=== PATIENT | male | born 1940 | race Caucasian/White ===

== ENCOUNTER → 2016-09-15 | Outpatient (CLI) | payer MEDICARE ==
[~2016-09-15] MED LIST: /PRAV20TA PO; ALLO10TA PO; ANTI12.5 OR; ASPI1TAB PO; ASPI81TA45 OR; ATOR1TAB21 PO; B12-1CHW PO; BUSP10TA PO; DIOVAN/HCT PO; DONE10TA15 PO; ELIQ5TAB PO; GLIP-163 PO; KEPP500T6 PO; METF500T PO; METO25TAB PO; NAPR500T2 PO; NORV5TAB PO; OMEP20CA3 PO; OMEP20TA7 PO; OMEP40CA2 PO; PARO20TA2 PO; PREDPOW10; TYLE325T5 PO; TYLENOL; VITA100072 PO; VITA200038 PO; ZYLO300T4 PO
--- NOTE | 2016-09-15 14:12 | REP ---
PARTIAL SKULL, ONE VIEW: HISTORY: Hydrocephalus. COMPARISON: 08/27/2016. A SALES REPRESENTATIVE DOOR TO DOOR shunt is present. The shunt valve has moved compared to the previous study. IMPRESSION: The shunt valve has moved compared to the previous study. Signed by Pravin Morales MD 09/15/2016 02:26 P
== END ==
LOC: M RAD 13:04
PROVIDERS: ATTEND Neurological Surgery
DX: F03.91 Unspecified dementia, unspecified severity, with behavioral disturbance (principal)

== ENCOUNTER → 2016-09-16 | Outpatient (CLI) | payer MEDICARE ==
--- NOTE | 2016-09-16 14:03 | REP ---
AP AND LATERAL SKULL, TWO VIEWS: HISTORY: Normal pressure hydrocephalus. COMPARISON: 09/15/2016 A shunt is present in the region of the third ventricle. The shunt valve position appears changed compared to the previous study. IMPRESSION: A PIPE FITTER SOFT COPPER shunt is present. The position of the shunt valve is changed compared to the previous study. Signed by Pravin Morales MD 09/16/2016 02:10 P
== END ==
LOC: M RAD 12:39
PROVIDERS: ATTEND Neurological Surgery
DX: G91.2 (Idiopathic) normal pressure hydrocephalus (principal); Z98.2 Presence of cerebrospinal fluid drainage device

== ENCOUNTER 2016-09-28 11:57 | Inpatient (IN) | payer MEDICARE, MEDICAID ==
[2016-09-28 13:09] LABS: BASO % 0.3 % (0.0-1.0); EOS # 0.1 K/mm3 (0.0-0.50); EOS % 0.9 % (0.0-3.0); LARGE UNSTAINED CELL # 0.1 K/mm3 (0.0-0.4); LARGE UNSTAINED CELL % 1.5 % (0.0-4.0); LYMPH # 1.4 K/mm3 (1.5-4.5); LYMPH % 16.1 % (24.0-44.0); MEAN CORPUSCULAR HEMOGLOBIN 33.7 pg (27.0-33.0); MEAN CORPUSCULAR VOLUME 102.2 fl (80.0-96.0); MONO # 0.3 K/mm3 (0.0-0.8); NEUTROPHILS # 6.7 K/mm3 (1.8-7.7); NEUTROPHILS % 77.2 % (36.0-66.0); PLATELET COUNT, AUTOMATED 301 k/mm3 (150-450); RED CELL DISTRIBUTION WIDTH 13.2 % (11.5-14.5); WHITE BLOOD COUNT 8.6 K/mm3 (4.0-10.0)
[2016-09-28 13:20] LABS: ALBUMIN 3.7 GM/DL (3.2-5.2); ALBUMIN/GLOBULIN RATIO 0.95 (1.00-1.93); BILIRUBIN,DIRECT 0.2 MG/DL (0.0-0.2); BILIRUBIN,TOTAL 0.7 MG/DL (0.2-1.0); CALCIUM LEVEL 8.9 MG/DL (8.8-10.2); CREATININE FOR GFR 1.39 MG/DL (0.70-1.30); GLOMERULAR FILTRATION RATE 52.6 (>42); POTASSIUM SERUM 3.9 MEQ/L (3.5-5.1); TOTAL PROTEIN 7.6 GM/DL (6.4-8.2)
--- NOTE | 2016-09-28 13:27 | REP ---
CT brain without contrast: 09/28/2016. Comparison 08/27/2016, 07/22/2015. Clinical history: Altered mental status. Evaluate for intracranial hemorrhage. Has a ventriculostomy catheter. Findings: Soft tissue and bone windows are reviewed. Via a right frontal approach, ventriculostomy drain is seen entering the frontal horn right lateral ventricle crossing the midline terminating in the right lateral ventricle. Maximum diameter between margins of the right and left frontal horns is now 59 mm. It was 54 mm on 08/27/2016 at the same level and 56 mm in June 2015. This is slight increase in size of the lateral ventricles. The third ventricle has a transverse diameter of 11.7 mm currently, previously 11.6 mm, unchanged. Fourth ventricle also appears unchanged. There appears to be more distension of the temporal horns of both lateral ventricles compared to the previous studies. Diffuse atrophy is seen, greatest in the temporal and frontal lobes but present throughout and grossly unchanged. No intracranial hemorrhage. Heavy falcine seen calcifications anteriorly noted and some calcifications on the tentorium as well unchanged. Brainstem intact. There is atrophy of the cerebellum bilaterally. No vascular territory infarct, hemorrhage or mass. No extra-axial hemorrhage or fluid collection. Ethmoid sinuses show mucosal thickening with the frontal and sphenoid sinuses clear. Mastoids are also clear. Skull base and calvarium are without fracture or focal lesion. Impression: 1. Right frontal ventriculostomy drain catheter crossing the midline with its tip terminating in the region of the foramen of Monro on the left. This ventriculomegaly appearance is unchanged, except that the diameter of the bilateral frontal horns combined is 59 mm, previously 54 mm on 08/27/2016. The third ventricle has unchanged diameter of 11.7 mm and the bilateral temporal horns of the lateral ventricles are mildly larger compared to the previous studies as well. No intra or extra-axial hemorrhage, mass or mass effect. Moderately severe atrophy unchanged. Signed by Bradley Schafer MD 09/28/2016 05:59 P
--- NOTE | 2016-09-28 13:38 | REP ---
SHUNT SERIES: 09/28/2016. Clinical history: Altered mental status. Known ventriculoperitoneal drain. Comparison: 03/17/2015. Findings: The right-sided ventriculostomy catheter is seen crossing the midline on the frontal skull view, unchanged. The catheter extends over the chest wall from the right neck into the right upper abdomen extending down to the deep pelvis curving laterally along the perineal gutter up into the lateral aspect of the mid upper right abdomen. The line is intact throughout. There is cardiomegaly with left atrial and ventricular enlargement and a tortuous calcified aorta. There are degenerative changes in the spine and hips. Surgical clips overlying the deep pelvis in the prostate bed. Vascular calcifications are noted in the pelvic and femoral arteries. Impression: 1. Ventriculostomy drain via the right frontoparietal region across the midline with its tip on the left and with the catheter course through the calvarium, scalp, right neck, right chest and into the abdomen/pelvis described and intact. Signed by Bradley Schafer MD 09/28/2016 05:59 P
[2016-09-28] MEDS ORDERED: TRAZ50TA4 PO (14:42)
[2016-09-28] MEDS ORDERED: ACET50TAOT PO (14:42)
[2016-09-28] MEDS ORDERED: METO25TAB PO (14:42)
[2016-09-28] MEDS ORDERED: HYDR1CAP25 PO (14:42)
[2016-09-28] MEDS ORDERED: COLA100C PO (14:44)
[2016-09-28] MEDS ORDERED: hydrOXYzine 25 MG TAB As Ordered ONE (15:36)
--- NOTE | 2016-09-28 19:31 | HPEPDOC ---
General Date of Admission Chief Complaint The patient is a 76-year-old male Presented to the ER by his family because he was found to have increased aggression and confusion in the last few week. 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 Patients has noted that after the shunt placement for the NPH he has had improvement; however there has been a slow and gradual decline in his mental status since that point. Recently in the last few weeks he is unable to recognize people, is lost within his own home, unable to perform activities of daily living and has become abusive and combative. Patient had a readjustment of his DRIER FEEDER shunt on September 06 and they noted there has not been much improvement. The patients notes, there have been no fevers or chills. Home Medications Scheduled Allopurinol (Zyloprim) 300 Mg Tab 300 MG PO DAILY (Reported) Amlodipine Besylate (Norvasc) 5 Mg Tab 5 MG PO DAILY (Reported) Apixaban Base (Eliquis) 5 Mg Tab 5 MG PO BID (Reported) Atorvastatin Calcium (Atorvastatin Calcium) 20 Mg Tab 20 MG PO DAILY (Reported ) Cholecalciferol (Vitamin D-3) 2,000 Unit Tab 2,000 UNIT PO DAILY (Reported) Cyanocobalamin (Vitamin B12) 1,000 Mcg Tab 1,000 MCG PO DAILY (Reported) Hydroxyzine Pamoate (Hydroxyzine Pamoate) 25 Mg Cap 25 MG PO BID (Reported) Metoprolol Tartrate (Metoprolol Tartrate) 25 Mg Tab 25 MG PO BID (Reported) Omeprazole (Omeprazole) 20 Mg Cap 20 MG PO DAILY (Reported) Paroxetine (Paroxetine HCl) 20 Mg Tab 20 MG PO DAILY (Reported) Trazodone HCl (Trazodone HCl) 50 Mg Tab 50 MG PO QHS (Reported) Scheduled PRN Acetaminophen (Acetaminophen) 500 Mg Tab 1,000 MG PO Q8H PRN PRN PAIN (Reported ) Docusate Sodium (Colace) 100 Mg Cap 100 MG PO BID PRN PRN CONSTIPATION (Reported ) Allergies Coded Allergies: Penicillins (Verified Allergy, Intermediate, HIVES, 11/28/12) Penicillins Cross Reactors (Verified Allergy, Intermediate, HIVES, 11/28/12) Past Medical History Medical History NPH s/p shunt (12/2013), Dementia, 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), Prostate CA (2000, s/p surgery and radiation), HTN, Neuropathy, Atrial fibrillation (on Eliquis) and arthritis Surgical History Prostate surgery NPH shunt placement Family History Family History Non contributory Social History Social History - Denies the use of tobacco or illicit drugs; Extensive alcohol abuse history in past - Denies recent travel or sick contacts - Lives with - 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; 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 Review of Symptoms Other systems Unable to obtain Vital Signs - Vitals: BP 162/78, HR 51, RR 16, Sat 99%RA, Temp 96.1F - General: Lying in bed, No acute distress, AAOx1 (person only - HEENT: NC, AT, PERRLA, EOMI - CVS: Bradycardia, +S1S2, - Lungs: Fair air entry bilaterally, Clear to auscultation, No wheezing / rales / rhonchi - Abdomen: Soft, Non-distended, Non-tender, + Bowel sounds x 4 - Extremities: + PPx4, No lower extremity edema, No calf tenderness - Neuro: No sensory deficit; 4/5 muscle strength at right leg - Skin: No visible rashes Laboratory Data Labs 24H Laboratory Tests 2 09/28/16 12:44: Aspartate Amino Transf (AST/SGOT) 20, Alanine Aminotransferase (ALT/SGPT) 42, Alkaline Phosphatase 61, Total Bilirubin 0.7, Direct Bilirubin 0.2, Albumin 3.7 , Albumin/Globulin Ratio 0.95L, Anion Gap 10, White Blood Count 8.6, Red Blood Count 4.06L, Hemoglobin 13.7L, Hematocrit 41.4L, Mean Corpuscular Volume 102.2H , Mean Corpuscular Hemoglobin 33.7H, Mean Corpuscular Hemoglobin Concent 33.0, Red Cell Distribution Width 13.2, Platelet Count 301, Neutrophils (%) (Auto) 77.2H, Lymphocytes (%) (Auto) 16.1L, Monocytes (%) (Auto) 4.0, Eosinophils (%) ( Auto) 0.9, Basophils (%) (Auto) 0.3, Neutrophils # (Auto) 6.7, Lymphocytes # ( Auto) 1.4L, Monocytes # (Auto) 0.3, Eosinophils # (Auto) 0.1, Basophils # (Auto ) 0.0, Calcium Level 8.9, Creatine Kinase MB 1.6, Creatine Kinase MB Relative Index 2.38, Glomerular Filtration Rate 52.6, Large Unclassified Cells # 0.1, Large Unclassified Cells % 1.5, Thyroid Stimulating Hormone (TSH) 1.750, Total Creatine Kinase 67, Total Protein 7.6, Troponin I 0.02 09/28/16 12:45: Bedside Glucose (Misc Panel) 191H 09/28/16 14:59: Urine Amorphous Sediment , Urine Appearance CLEAR, Urine Color YELLOW, Urine pH 5.0, Urine Specific [place] 1.020, Urine Protein 2+H, Urine Glucose (UA) NEGATIVE, Urine Ketones NEGATIVE, Urine Urobilinogen 0.2, Urine Bilirubin NEGATIVE, Urine Leukocyte Esterase NEGATIVE, Urine Bacteria (Auto) NEGATIVE, Urine Blood NEGATIVE, Urine Calcium Carbonate Cryst(Auto) , Urine Calcium Oxalate Cryst (Auto) , Urine Calcium Phosphate Adeline (Auto) , Urine Cellular Casts , Urine Cystine Crystals , Urine Granular Casts (Auto) , Urine Hyaline Casts (Auto) 0, Urine Leucine Crystals , Urine Mucus (Auto) SMALL, Urine Nitrite NEGATIVE, Urine Oval Fat Bodies (Auto) , Urine RBC (Auto) 2, Urine Renal Epithelial Cells , Urine Sperm (Auto) , Urine Squamous Epithelial Cells 0 , Urine Transitional Epithelial Cells , Urine Trichomonas (Auto) , Urine Triple Phosphate Cryst (Auto) , Urine Tyrosine Crystals , Urine Uric Acid Crystals ( Auto) , Urine WBC (Auto) 1, Urine Waxy Casts (Auto) , Urine Yeast-Like Cells ( Auto) 09/28/16 19:09: CBC/BMP Laboratory Tests 09/28/16 12:44 Red Blood Count 4.06 L, Mean Corpuscular Volume 102.2 H, Mean Corpuscular Hemoglobin 33.7 H, Mean Corpuscular Hemoglobin Concent 33.0, Red Cell Distribution Width 13.2, Neutrophils (%) (Auto) 77.2 H, Lymphocytes (%) (Auto) 16.1 L, Monocytes (%) (Auto) 4.0, Eosinophils (%) (Auto) 0.9, Basophils (%) ( Auto) 0.3, Neutrophils # (Auto) 6.7, Lymphocytes # (Auto) 1.4 L, Monocytes # ( Auto) 0.3, Eosinophils # (Auto) 0.1, Basophils # (Auto) 0.0 Microbiology Microbiology 09/28/16 Blood Culture, Received Pending 09/28/16 Urine Culture, Received Pending Plan / VTE VTE Prophylaxis Ordered?: Yes Plan Plan Acute metabolic encephalopathy possibly 2/2 worsening of underlying dementia or NPH, possibly 2/2 urinary tract infection - Gradual worsening of dementia over multiple weeks - Has had revaluation and adjustment of shunt with Dr. 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
--- NOTE | 2016-09-28 20:06 | EDDOCDS ---
Physician Documentation [facility] Name: Edi Sweeney Age: 76 yrs Sex: Male : 1940 Arrival Date: 09/28/2016 Time: 11:57 Bed 10 Private MD: Venus Amin E Disposition: 09/28/16 14:15 Hospitalization ordered by Jimmie Delong for Inpatient Admission. Preliminary diagnosis is Altered mental status, unspecified. - Bed requested for 4 [place]. - Status is Inpatient Admission. hs1 - Condition is Stable. - Problem is an ongoing problem. - Symptoms are unchanged. Historical: - Allergies: PENICILLINS; - Home Meds: 1. Eliquis 5 mg oral tab 1 tab daily (Last dose: 09/28/2016 07:00) 2. Doc-Q-Lace 100 mg oral cap 1 cap once daily (Last dose: 09/24/2016 07:00) 3. atorvastatin 20 mg oral tab 1 tab once daily (Last dose: 09/27/2016 20:15) 4. metoprolol tartrate 25 mg Oral tab 1 tab once daily (Last dose: 09/28/2016 07:00) 5. trazodone 50 mg Oral tab 0.5 tab (Last dose: 09/27/2016 20:15) 6. allopurinol 300 mg Oral tab 1 tab once daily (Last dose: 09/28/2016 07:00) 7. paroxetine HCl 20 mg Oral tab 1 tab once daily (Last dose: 09/28/2016 07:00) 8. omeprazole 20 mg Oral cpDR 1 cap once daily (Last dose: 09/28/2016 07:00) 9. hydroxyzine HCl 25 mg Oral tab (Last dose: 09/27/2016 20:15) 10. amlodipine 5 mg Oral tab 1 tab once daily (Last dose: 09/28/2016 07:00) 11. Vitamin B-12 1,000 mcg Oral tab daily (Last dose: 09/28/2016 07:00) 12. Vitamin D3 2,000 unit oral cap daily (Last dose: 09/28/2016 07:00) - PMHx: normal pressure hydrocephalus; Dementia; Arthritis; neuropathy of arms and legs; prostate cancer; lumbar fracture; Stroke; - PSHx: prostate surgery; hydrocephalus shunt insertion; Prostatectomy; right sided head shunt placement; - Social history: Smoking status: Patient states was never smoker of tobacco. No barriers to communication noted, The patient speaks fluent Estonian. - Family history: Not pertinent. - : The pt / caregiver states he / she is on anticoagulants: Eliqu Home medication list is obtained from family members. - Exposure Risk Screening:: None identified. Vital Signs: 09/28 11:59 BP 151 / 79; Pulse 57; Resp 18 S; Temp 96.1(O); Pulse Ox 95% on R/A; Weight 83.91 kg / gr2 184.99 lbs (R); Height 5 ft. 10 in. (177.80 cm) (R); Pain 5/10; 13:11 Pulse 50 MON; Pulse Ox 96% ; ja5 13:12 BP 164 / 78 (auto/); ja5 13:41 Pulse 46 MON; ja5 13:42 BP 166 / 76 (auto/); ja5 14:11 Pulse 48 MON; ja5 14:12 BP 162 / 78 (auto/); ja5 14:41 Pulse 50 MON; Pulse Ox 96% ; ja5 14:42 BP 184 / 85 (auto/); ja5 15:11 Pulse 52 MON; Pulse Ox 94% ; ja5 15:12 BP 180 / 86 (auto/); ja5 15:30 Pulse 58 MON; Pulse Ox 88% ; ja5 15:33 BP 189 / 83 (auto/); ja5 18:00 BP 171 / 78; Pulse 65; Resp 18; Temp 98.1(O); Pulse Ox 95% on R/A; ead 19:44 BP 156 / 79; Pulse 66; Resp 18; Temp 99.1(TE); Pulse Ox 94% on R/A; Pain 0/10; mlc 11:59 Body Mass Index 26.54 (83.91 kg, 177.80 cm) gr2 MDM: 12:08 Adoption Worker/Pulse Ox/q 15 min VS ordered. br1 12:08 Accucheck ordered. br1 12:08 IV Saline Lock ordered. br1 12:08 Rhythm Strip to chart ordered. br1 12:09 CBC with Diff Ordered. EDMS 12:09 Cardiac Injury Profile Ordered. EDMS 12:09 Liver Profile Ordered. EDMS 12:09 MED Profile Ordered. EDMS 12:09 Thyroid Stimulating Hormone Ordered. EDMS 12:09 Troponin Ordered. EDMS 12:09 ECG WITH READING ER PHYS+CARDIAG ordered. EDMS 12:25 Shunt Series Ordered. EDMS 12:25 CT Head Without Contrast Ordered. EDMS 12:54 Fingerstick Blood Sugar Ordered. EDMS 13:42 CBC with Diff Reviewed. ke 13:42 Liver Profile Reviewed. ke 13:42 MED Profile Reviewed. ke 13:42 Fingerstick Blood Sugar Reviewed. ke 13:42 Cardiac Injury Profile Reviewed. ke 13:42 Thyroid Stimulating Hormone Reviewed. ke 13:42 Troponin Reviewed. ke 13:42 CT Head Without Contrast Reviewed. ke 13:59 Financial registration complete. lg 13:59 BED REQUEST+ADM ordered. EDMS 14:13 UA Ordered. EDMS 14:13 Urine Culture Ordered. EDMS 14:49 Admission / Observation Status ordered. EDMS 14:49 2 GRAM SODIUM DIET ordered. EDMS 14:50 CARDIAC INJURY PROFILE Ordered. EDMS 14:50 TROPONIN Ordered. EDMS 14:50 URINALYSIS Ordered. EDMS 14:50 URINE CULTURE Ordered. EDMS 14:50 BLOOD CULTURES Ordered. EDMS 14:51 PHYSICAL THERAPY EVAL & TREAT ordered. EDMS 14:52 [place] Payment Agreement was scanned into [employer] and attached to record. lg 15:43 hydrOXYzine 25 mg PO once ordered. jc4 16:27 T-Sheet-- Draft Copy was scanned into [employer] and attached to record. klr 19:31 CARDIAC INJURY PROFILE Ordered. EDMS 19:31 CARDIAC INJURY PROFILE Ordered. EDMS 19:31 TROPONIN Ordered. EDMS 19:31 TROPONIN Ordered. EDMS 19:31 CBC WITH DIFFERENTIAL Ordered. EDMS 19:31 COMPLETE COMPHRENSIVE METABOLI Ordered. EDMS 19:31 MAGNESIUM LEVEL Ordered. EDMS Point of Care Testing: Blood Glucose: 12:46 Blood Glucose: 191 mg/dL; jc4 Ranges: Administered Medications: 15:43 Drug: hydrOXYzine 25 mg [hydroxyzine HCl 25 mg tablet (1 tabs)] Route: PO; jc4 Signatures: Dispatcher [employer] EDMS Antonia Mast, Reg Reg lg Albert Tellez, PICK UP OPERATOR PICK UP OPERATOR Jeff Barrios MD MD br1 Sherry Ghosh RN RN hs1 Deb Valdez RN RN jc4 Mcnamara,Marie,RN RN mlc Edyta Ceron Lisa, RN RN lmg Anderson, Jessica, RN RN ja5 The chart was reviewed and I authenticate all verbal orders and agree with the evaluation and treatment provided.Corrections: (The following items were deleted from the chart) 12:43 12:18 Home Meds: Eliquis 5 mg oral tab 1 tab daily; [facility] ja5 12:43 12:18 Home Meds: Doc-Q-Lace 100 mg oral cap 1 cap once daily; [facility] 12:43 12:18 Home Meds: atorvastatin 20 mg oral tab 1 tab once daily; [facility] 12:43 12:18 Home Meds: metoprolol tartrate 25 mg Oral tab 1 tab once daily; [place] [id number] 12:43 12:18 Home Meds: trazodone 50 mg oral tab 0.5 tab; [facility] :43 12:18 Home Meds: allopurinol 300 mg Oral tab 1 tab once daily; [place] [address] 12:43 12:18 Home Meds: paroxetine HCl 20 mg Oral tab 1 tab once daily; [facility] 12:43 12:18 Home Meds: omeprazole 20 mg Oral cpDR 1 cap once daily; [place] [address] 12:43 12:18 Home Meds: hydroxyzine HCl 25 mg Oral tab; [place] [address] 12:51 12:41 The pt / caregiver states he / she is not on anticoagulants. ja5 jc4 Attachments: 14:52 [facility] Payment Agreement lg 16:27 T-Sheet-- Draft Copy klr [id number]
--- NOTE | 2016-09-28 20:06 | EDDOCDS ---
Nurse's Notes [facility] Name: Edi Sweeney Age: 76 yrs Sex: Male : 1940 Arrival Date: 09/28/2016 Time: 11:57 Bed 10 Private MD: Venus Amin E Diagnosis: Altered mental status, unspecified Presentation: 09/28 12:14 Presenting complaint: states: history of dementia and has been getting more hs1 volatile at night with her and cannot recognize home anymore. Patient at this time is cooperative and is pleasant. Patient per is getting more and more forgetful. Patient evaluated at Dr mAin office today and they were sent here for further evaluation. Adult Sepsis Screening: The patient does not have new or worsening altered mentation. Patient's respiratory rate is less than 22. Systolic blood pressure is greater than 100. Patient has a qSOFA score of 0- Negative Sepsis Screen. Suicide/Homicide risk assessment- the patient denies having any suicidal and/or homicidal ideations and does not present with any other emotional, behavioral or mental health complaints. Status: Patient is not a creative services designer or dependent. Transition of care: patient was received from a primary care office; Dr Amin. 12:14 Acuity: ELIZABETH Level 3 hs1 12:14 Method Of Arrival: Walkin/Carried/Asstd hs1 Historical: - Allergies: PENICILLINS; - Home Meds: 1. Eliquis 5 mg oral tab 1 tab daily (Last dose: 09/28/2016 07:00) 2. Doc-Q-Lace 100 mg oral cap 1 cap once daily (Last dose: 09/24/2016 07:00) 3. atorvastatin 20 mg oral tab 1 tab once daily (Last dose: 09/27/2016 20:15) 4. metoprolol tartrate 25 mg Oral tab 1 tab once daily (Last dose: 09/28/2016 07:00) 5. trazodone 50 mg Oral tab 0.5 tab (Last dose: 09/27/2016 20:15) 6. allopurinol 300 mg Oral tab 1 tab once daily (Last dose: 09/28/2016 07:00) 7. paroxetine HCl 20 mg Oral tab 1 tab once daily (Last dose: 09/28/2016 07:00) 8. omeprazole 20 mg Oral cpDR 1 cap once daily (Last dose: 09/28/2016 07:00) 9. hydroxyzine HCl 25 mg Oral tab (Last dose: 09/27/2016 20:15) 10. amlodipine 5 mg Oral tab 1 tab once daily (Last dose: 09/28/2016 07:00) 11. Vitamin B-12 1,000 mcg Oral tab daily (Last dose: 09/28/2016 07:00) 12. Vitamin D3 2,000 unit oral cap daily (Last dose: 09/28/2016 07:00) - PMHx: normal pressure hydrocephalus; Dementia; Arthritis; neuropathy of arms and legs; prostate cancer; lumbar fracture; Stroke; - PSHx: prostate surgery; hydrocephalus shunt insertion; Prostatectomy; right sided head shunt placement; - Social history: Smoking status: Patient states was never smoker of tobacco. No barriers to communication noted, The patient speaks fluent [place]. - Family history: Not pertinent. - : The pt / caregiver states he / she is on anticoagulants[facility] is obtained from family members. - Exposure Risk Screening:: None identified. Screenin:43 Screening information is obtained from the patient, family members. Fall risk: At risk ja5 due to prior history of falls. Assistance ADL's: Requires assistance with meal preparation, this assistance is provided by family members, bathing, assistance is provided by family members, dressing, assistance is provided by family members, toileting, assistance is provided by family members, housework, assistance is provided by family members, medication administration, assistance is provided by family members. Abuse/DV Screen: The patient / caregiver reports he/she is: not in a situation that causes fear, pain or injury. Nutritional screening: On no prescribed diet. 12:51 Advance Directives: Currently, there is a health care proxy, Kathy Sweeney, . There ja5 is an active DNR order but there is no copy available at this time. There is no living will. There is an active Power of Tailor Garment Fitter, Kathy Sweeney, . home support is adequate. Assessment: 12:53 General: Appears in no apparent distress, Behavior is cooperative. ja5 15:37 General: Patient is awake, is having some confusion and restlessness. He is attempting ja5 to get out of bed at this time. Monitors were removed and patient was repositioned for comfort. Patient is in stretcher, family at bedside.. Neurological: Level of Consciousness is awake, confused, Oriented to person. 15:43 General: at nurse's station states that patient is becoming agitated. Pt found to jc4 be slid down on stretcher. Pt repositioned. Pt is alert to person. No distress noted at this time. Spoke with Dr. Delong who states to go ahead and administer dose of Hydroxyzine now. Pt is reluctant to take pill, states, "give it to her". Pt points to wall while verbalizing this. Pt administered dose of medication, declines to open mouth to check to see if pill is gone, but is willing to take another sip of water and swallows without difficulty. 16:03 General: Pt lying on stretcher. Smiling, cooperative. Color pink, skin warm and dry. jc4 Respirations easy and full. Family at bedside, attentive. Aware awaiting bed assignment. Call schulz in reach. 16:35 General: Pt ambulating in hallway, states, "there he goes again". Pt has slow jc4 steady gait but normally uses walker at home. aware that sitter has been requested for patient. She states, "they better not talk to him or engage him, because it just makes him worse". Pt sitting in bedside chair. TV is turned on and patient has been given Jose Eduardo frias and terrie raven. 17:38 General: Patient sitting up in chair, sitter in room, patient appears to be calm and ja5 relaxed at this time.. 19:33 General: Appears in no apparent distress, comfortable, Behavior is cooperative. mlc General: Family and sitter at bedside. IV site clear. . Pain: Denies pain. Neurological: Level of Consciousness is awake, obeys commands, Oriented to person. Respiratory: Airway is patent Respiratory effort is even, unlabored, Respiratory pattern is regular. Derm: Skin is normal. Vital Signs: 11:59 BP 151 / 79; Pulse 57; Resp 18 S; Temp 96.1(O); Pulse Ox 95% on R/A; Weight 83.91 kg gr2 (R); Height 5 ft. 10 in. (177.80 cm) (R); Pain 5/10; 13:11 Pulse 50 MON; Pulse Ox 96% ; ja5 13:12 BP 164 / 78 (auto/); ja5 13:41 Pulse 46 MON; ja5 13:42 BP 166 / 76 (auto/); ja5 14:11 Pulse 48 MON; ja5 14:12 BP 162 / 78 (auto/); ja5 14:41 Pulse 50 MON; Pulse Ox 96% ; ja5 14:42 BP 184 / 85 (auto/); ja5 15:11 Pulse 52 MON; Pulse Ox 94% ; ja5 15:12 BP 180 / 86 (auto/); ja5 15:30 Pulse 58 MON; Pulse Ox 88% ; ja5 15:33 BP 189 / 83 (auto/); ja5 18:00 BP 171 / 78; Pulse 65; Resp 18; Temp 98.1(O); Pulse Ox 95% on R/A; ead 19:44 BP 156 / 79; Pulse 66; Resp 18; Temp 99.1(TE); Pulse Ox 94% on R/A; Pain 0/10; mlc 11:59 Body Mass Index 26.54 (83.91 kg, 177.80 cm) gr2 Vitals: 11:59 Log In Time: September 28, 2016 at 11:59. RN notified that patient meets Red Flag gr2 criteria. ED Course: 11:58 Patient visited by Camille Cruz. gr2 11:58 Patient moved to Waiting gr2 11:59 Venus Amin is Private Physician. gr2 12:03 Patient visited by Camille Cruz. gr2 12:03 Patient moved to Pre RCE gr2 12:04 Deb Valdez, RN is Primary Nurse. gr2 12:04 Patient moved to 10 gr2 12:14 EKG done. (by ED staff). Reviewed by Jeff Barboza MD. ar3 12:15 Triage Initiated hs1 12:19 Patient visited by Imani Modi PCA. ar3 12:46 Inserted saline lock: 20 gauge in right antecubital area The patient tolerated the jc4 procedure well. 12:46 CBC with Diff Sent. jc4 12:46 Cardiac Injury Profile Sent. jc4 12:46 Liver Profile Sent. jc4 12:47 MED Profile Sent. jc4 12:47 Thyroid Stimulating Hormone Sent. jc4 12:47 Troponin Sent. jc4 13:03 Patient visited by Jessica Yanes PCA. ct3 13:29 CT Head Without Contrast Returned. EDMS 13:30 [facility] ke 13:30 Patient visited by Albert Tellez FNP. ke 13:30 Patient visited by Albert Tellez FNP. ke 13:58 Patient visited by Albert Tellez FNP. ke 14:14 Jimmie Delong MD is Hospitalizing Provider. ke 14:22 Shunt Series Returned. EDMS 14:52 [facility] Payment Agreement was scanned into [employer] and attached to record. lg 15:00 Urine Culture Sent. ct3 15:00 UA Sent. ct3 15:44 Patient visited by Amy Tillman,CESARIO. ja5 16:27 T-Sheet-- Draft Copy was scanned into [employer] and attached to record. klr 17:02 Primary Nurse role handed off by Deb Valdez, CESARIO jc4 17:55 Diet: 2 gram sodium diet given to patient.. ct3 17:56 Patient visited by Jessica Yanes PCA. ct3 18:01 Patient visited by Indigo Luna,CESARIO. ead 18:15 CT Head Without Contrast Returned. EDMS 19:23 Marie Mcnamara,RN is Primary Nurse. mlc 19:34 Patient visited by Marie Mcnamara RN. mlc 19:42 IV is intact, is free of redness or swelling. No procedures done that require mlc assistance. 19:43 The patient / caregiver is instructed regarding the plan of care and ED course. mlc reviewed with family. Administered Medications: 15:43 Drug: hydrOXYzine 25 mg [hydroxyzine HCl 25 mg tablet (1 tabs)] Route: PO; jc4 Point of Care Testing: Blood Glucose: 12:46 Blood Glucose: 191 mg/dL; jc4 Ranges: Order Results: Lab Order: CBC with Diff; SPEC'M 09/28/16 12:44 Test: WHITE BLOOD COUNT; Value: 8.6; Range: 4.0-10.0; Units: K/mm3; Status: F Test: RED BLOOD COUNT; Value: 4.06; Range: 4.30-6.10; Abnormal: Below low normal; Units: M/mm3; Status: F Test: HEMOGLOBIN; Value: 13.7; Range: 14.0-18.0; Abnormal: Below low normal; Units: g/dl; Status: F Test: HEMATOCRIT; Value: 41.4; Range: 42.0-52.0; Abnormal: Below low normal; Units: %; Status: F Test: MEAN CORPUSCULAR VOLUME; Value: 102.2; Range: 80.0-96.0; Abnormal: Above high normal; Units: fl; Status: F Test: MEAN CORPUSCULAR HEMOGLOBIN; Value: 33.7; Range: 27.0-33.0; Abnormal: Above high normal; Units: pg; Status: F Test: MEAN CORPUSCULAR HGB CONC; Value: 33.0; Range: 32.0-36.5; Units: g/dl; Status: F Test: RED CELL DISTRIBUTION WIDTH; Value: 13.2; Range: 11.5-14.5; Units: %; Status: F Test: PLATELET COUNT, AUTOMATED; Value: 301; Range: 150-450; Units: k/mm3; Status: F Test: NEUTROPHILS %; Value: 77.2; Range: 36.0-66.0; Abnormal: Above high normal; Units: %; Status: F Test: LYMPH %; Value: 16.1; Range: 24.0-44.0; Abnormal: Below low normal; Units: %; Status: F Test: MONO %; Value: 4.0; Range: 0.0-5.0; Units: %; Status: F Test: EOS %; Value: 0.9; Range: 0.0-3.0; Units: %; Status: F Test: BASO %; Value: 0.3; Range: 0.0-1.0; Units: %; Status: F Test: LARGE UNSTAINED CELL %; Value: 1.5; Range: 0.0-4.0; Units: %; Status: F Test: NEUTROPHILS #; Value: 6.7; Range: 1.8-7.7; Units: K/mm3; Status: F Test: LYMPH #; Value: 1.4; Range: 1.5-4.5; Abnormal: Below low normal; Units: K/mm3; Status: F Test: MONO #; Value: 0.3; Range: 0.0-0.8; Units: K/mm3; Status: F Test: EOS #; Value: 0.1; Range: 0.0-0.50; Units: K/mm3; Status: F Test: BASO #; Value: 0.0; Range: 0.0-0.2; Units: K/mm3; Status: F Test: LARGE UNSTAINED CELL #; Value: 0.1; Range: 0.0-0.4; Units: K/mm3; Status: F Lab Order: Cardiac Injury Profile; [facility] 09/28/16 12:44 Test: CPK CREATINE PHOSPHOKINASE; Value: 67; Range: 39-308; Units: U/L; Status: F Test: CK-MB VALUE MASS; Value: 1.6; Range: 0.0-3.6; Units: NG/ML; Status: F Test: MB/CK RELATIVE INDEX; Value: 2.38; Range: < OR =4; Status: F Test Note: ; DIAGNOSIS CRITERIA MMB ng/ml Relative Index (RI) NON-AMI < or = 5 N/A FLORIAN ZONE > 5 < or = 4 AMI > 5 > 4 Lab Order: Liver Profile; [facility] 09/28/16 12:44 Test: AST/SGOT; Value: 20; Range: 15-37; Units: U/L; Status: F Test: ALT/SGPT; Value: 42; Range: 12-78; Units: U/L; Status: F Test: ALKALINE PHOSPHATASE; Value: 61; Range: 45-117; Units: U/L; Status: F Test: BILIRUBIN,TOTAL; Value: 0.7; Range: 0.2-1.0; Units: MG/DL; Status: F Test: BILIRUBIN,DIRECT; Value: 0.2; Range: 0.0-0.2; Units: MG/DL; Status: F Test: TOTAL PROTEIN; Value: 7.6; Range: 6.4-8.2; Units: GM/DL; Status: F Test: ALBUMIN; Value: 3.7; Range: 3.2-5.2; Units: GM/DL; Status: F Test: ALBUMIN/GLOBULIN RATIO; Value: 0.95; Range: 1.00-1.93; Abnormal: Below low normal; Status: F Lab Order: MED Profile; [facility] 09/28/16 12:44 Test: GLUCOSE, FASTING; Value: 182; Range: 83-110; Abnormal: Above high normal; Units: MG/DL; Status: F Test: BLOOD UREA NITROGEN; Value: 20; Range: 7-18; Abnormal: Above high normal; Units: MG/DL; Status: F Test: CREATININE FOR GFR; Value: 1.39; Range: 0.70-1.30; Abnormal: Above high normal; Units: MG/DL; Status: F Test: GLOMERULAR FILTRATION RATE; Value: 52.6; Range: >42; Status: F Test: SODIUM LEVEL; Value: 142; Range: 136-145; Units: MEQ/L; Status: F Test: POTASSIUM SERUM; Value: 3.9; Range: 3.5-5.1; Units: MEQ/L; Status: F Test: CHLORIDE LEVEL; Value: 105; Range: 98-107; Units: MEQ/L; Status: F Test: CARBON DIOXIDE LEVEL; Value: 27; Range: 21-32; Units: MEQ/L; Status: F Test: ANION GAP; Value: 10; Range: 8-16; Units: MEQ/L; Status: F Test: CALCIUM LEVEL; Value: 8.9; Range: 8.8-10.2; Units: MG/DL; Status: F Test Note: ; Units are mL/min/1.73 m2 Chronic Kidney Disease Staging per NKF: Stage I & II GFR >=60 Normal to Mildly Decreased Stage III GFR 30-59 Moderately Decreased Stage IV GFR 15-29 Severely Decreased Stage V GFR <15 Very Little GFR Left ESRD GFR <15 on LIFT TRUCK OPERATOR Lab Order: Thyroid Stimulating Hormone; SPEC'M 09/28/16 12:44 Test: THYROID STIMULATING HORMONE; Value: 1.750; Range: 0.358-3.740; Units: uIU/ML; Status: F Lab Order: Troponin; SPEC'M 09/28/16 12:44 Test: TROPONIN I; Value: 0.02; Range: < 0.10; Units: NG/ML; Status: F Test Note: ; Troponin I Reference Interval for [employer] LOCI: 99th Percentile= 0.00-0.045 ng/ml Risk Stratification: <= 0.10 ng/ml Decreased Risk for Adverse Clinical Events. 0.10-1.50 ng/ml Increased Risk for Adverse Clinical Events. Evaluation of additional criterion and/or repeat testing in 2-6 hours is suggested to rule out myocardial damage. >= 1.50 ng/ml Indicative of Myocardial Injury. Lab Order: Fingerstick Blood Sugar; SPEC'M 09/28/16 12:45 Test: BEDSIDE GLUCOSE; Value: 191; Range: 83-110; Abnormal: Above high normal; Units: MG/DL; Status: F Lab Order: UA; SPEC'M 09/28/16 14:59 Test: APPEARANCE, URINE; Value: CLEAR; Range: CLEAR; Status: F Test: COLOR, URINE; Value: YELLOW; Range: YELLOW; Status: F Test: PH,URINE; Value: 5.0; Range: 5.0-9.0; Units: UNITS; Status: F Test: SPECIFIC GRAVITY URINE AUTO; Value: 1.020; Range: 1.002-1.035; Status: F Test: PROTEIN, URINE AUTO; Value: 2+; Range: NEGATIVE; Abnormal: Above high normal; Units: mg/dL; Status: F Test: GLUCOSE, URINE (UA) AUTO; Value: NEGATIVE; Range: NEGATIVE; Units: mg/dL; Status: F Test: KETONE, URINE AUTO; Value: NEGATIVE; Range: NEGATIVE; Units: mg/dL; Status: F Test: UROBILINOGEN, URINE AUTO; Value: 0.2; Range: 0.0-2.0; Units: mg/dL; Status: F Test: BILIRUBIN, URINE AUTO; Value: NEGATIVE; Range: NEGATIVE; Status: F Test: NITRITE, URINE AUTO; Value: NEGATIVE; Range: NEGATIVE; Status: F Test: LEUKOCYTE ESTERASE, URINE AUTO; Value: NEGATIVE; Range: NEGATIVE; Status: F Test: BLOOD, URINE BLOOD; Value: NEGATIVE; Range: NEGATIVE; Status: F Test: WBC, URINE AUTO; Value: 1; Range: 0-3; Units: /HPF; Status: F Test: RBC, URINE AUTO; Value: 2; Range: 0-3; Units: /HPF; Status: F Test: BACTERIA, URINE AUTO; Value: NEGATIVE; Range: NEGATIVE; Status: F Test: SQUAMOUS EPITHELIAL CELL UR AU; Value: 0; Range: 0-6; Units: /HPF; Status: F Test: MUCUS, URINE; Value: SMALL; Range: NEGATIVE; Status: F Test: HYALINE CAST, URINE AUTO; Value: 0; Range: 0-1; Units: /LPF; Status: F Lab Order: CARDIAC INJURY PROFILE; SPEC'M 09/28/16 19:09 Test: CPK CREATINE PHOSPHOKINASE; Value: 77; Range: 39-308; Units: U/L; Status: F Test: CK-MB VALUE MASS; Value: 1.9; Range: 0.0-3.6; Units: NG/ML; Status: F Test: MB/CK RELATIVE INDEX; Value: 2.46; Range: < OR =4; Status: F Test Note: ; DIAGNOSIS CRITERIA MMB ng/ml Relative Index (RI) NON-AMI < or = 5 N/A FLORIAN ZONE > 5 < or = 4 AMI > 5 > 4 Lab Order: TROPONIN; SPEC'M 09/28/16 19:09 Test: TROPONIN I; Value: < 0.02; Range: < 0.10; Units: NG/ML; Status: F Test Note: ; Troponin I Reference Interval for [employer] LOCI: 99th Percentile= 0.00-0.045 ng/ml Risk Stratification: <= 0.10 ng/ml Decreased Risk for Adverse Clinical Events. 0.10-1.50 ng/ml Increased Risk for Adverse Clinical Events. Evaluation of additional criterion and/or repeat testing in 2-6 hours is suggested to rule out myocardial damage. >= 1.50 ng/ml Indicative of Myocardial Injury. Radiology Order: CT Head Without Contrast Test: CT Head Without Contrast REASON FOR EXAMINATION: altered eval for ich; CT brain without contrast: 09/28/2016.; ; Comparison 08/27/2016, 07/22/2015.; ; Clinical history: Altered mental status. Evaluate for intracranial hemorrhage.; Has a ventriculostomy catheter.; ; Findings: Soft tissue and bone windows are reviewed. Via a right frontal; approach, ventriculostomy drain is seen entering the frontal horn right lateral; ventricle crossing the midline terminating in the right lateral ventricle.; Maximum diameter between margins of the right and left frontal horns is now 59; mm. It was 54 mm on 08/27/2016 at the same level and 56 mm in June 2015.; This is slight increase in size of the lateral ventricles. The third ventricle; has a transverse diameter of 11.7 mm currently, previously 11.6 mm, unchanged.; Fourth ventricle also appears unchanged. There appears to be more distension of; the temporal horns of both lateral ventricles compared to the previous studies.; Diffuse atrophy is seen, greatest in the temporal and frontal lobes but present; throughout and grossly unchanged. No intracranial hemorrhage. Heavy falcine; seen calcifications anteriorly noted and some calcifications on the tentorium as; well unchanged. Brainstem intact. There is atrophy of the cerebellum; bilaterally. No vascular territory infarct, hemorrhage or mass. No extra-axial; hemorrhage or fluid collection. Ethmoid sinuses show mucosal thickening with the; frontal and sphenoid sinuses clear. Mastoids are also clear. Skull base and; calvarium are without fracture or focal lesion.; ; Impression:; ; 1. Right frontal ventriculostomy drain catheter crossing the midline with its; tip terminating in the region of the foramen of Monro on the left. This; ventriculomegaly appearance is unchanged, except that the diameter of the; bilateral frontal horns combined is 59 mm, previously 54 mm on 08/27/2016. The; third ventricle has unchanged diameter of 11.7 mm and the bilateral temporal; horns of the lateral ventricles are mildly larger compared to the previous; studies as well. No intra or extra-axial hemorrhage, mass or mass effect.; Moderately severe atrophy unchanged.; ; ; Signed by; Bradley Schafer MD 09/28/2016 05:59 P; Radiology Order: Shunt Series Test: Shunt Series REASON FOR EXAMINATION: altered mental status; SHUNT SERIES: 09/28/2016.; ; Clinical history: Altered mental status. Known ventriculoperitoneal drain.; ; Comparison: 03/17/2015.; ; Findings: The right-sided ventriculostomy catheter is seen crossing the midline; on the frontal skull view, unchanged. The catheter extends over the chest wall; from the right neck into the right upper abdomen extending down to the deep; pelvis curving laterally along the perineal gutter up into the lateral aspect of; the mid upper right abdomen. The line is intact throughout. There is; cardiomegaly with left atrial and ventricular enlargement and a tortuous; calcified aorta. There are degenerative changes in the spine and hips. Surgical; clips overlying the deep pelvis in the prostate bed. Vascular calcifications are; noted in the pelvic and femoral arteries.; ; Impression:; ; 1. Ventriculostomy drain via the right frontoparietal region across the midline; with its tip on the left and with the catheter course through the calvarium,; scalp, right neck, right chest and into the abdomen/pelvis described and intact.; ; ; Signed by; Bradley Schafer MD 09/28/2016 05:59 P; Outcome: 14:15 Decision to Hospitalize by Provider. 19:31 Admission hand-off: Report Faxed Fax receipt verified by CESARIO Chavez. [facility] 19:43 Discharge Assessment: Patient awake, alert and oriented x 3. No cognitive and/or [facility] functional deficits noted. Patient verbalized understanding of disposition instructions. patient administered narcotics - no. The following High Risk Discharge criteria are identified: None. Admitted to Med/Surg accompanied by tech, via stretcher, with chart. Condition: good Condition: stable. CT Study completed. Property :Personal belongings accompany Pt. 20:05 Patient left the ED. hs1 Signatures: Dispatcher [employer] EDMS Antonia Mast, Reg Reg lg Albert Tellez, SLOT OPERATIONS MANAGER SLOT OPERATIONS MANAGER Imani Pandya, [employer] ar3 Sherry Ghosh RN RN 1 Deb Valdez RN RN 4 Jessica Yanes, [employer] S[employer] M[employer] S[employer] ct3 Camille Cruz gr2 Indigo Luna RN RN ead Booth, Mandy, RN RN mlc Redder, Kathie klr Anderson, Jessica, RN RN [email or web address] Corrections: (The following items were deleted from the chart) 12:43 12:18 Home Meds: Eliquis 5 mg oral tab 1 tab daily; [place] [id number] 12:43 12:18 Home Meds: Doc-Q-Lace 100 mg oral cap 1 cap once daily; [place] [id number] 12:43 12:18 Home Meds: atorvastatin 20 mg oral tab 1 tab once daily; [place] [id number] 12:43 12:18 Home Meds: metoprolol tartrate 25 mg Oral tab 1 tab once daily; [place] [id number] 12:43 12:18 Home Meds: trazodone 50 mg oral tab 0.5 tab; [place] [id number] :43 12:18 Home Meds: allopurinol 300 mg Oral tab 1 tab once daily; [place] [id number] 12:43 12:18 Home Meds: paroxetine HCl 20 mg Oral tab 1 tab once daily; [place] [id number] 12:43 12:18 Home Meds: omeprazole 20 mg Oral cpDR 1 cap once daily; [facility] ja5 12:18 Home Meds: hydroxyzine HCl 25 mg Oral tab; [facility] ja5 12:51 12:41 The pt / caregiver states he / she is not on anticoagulants. ja5 jc4 MTDD
[2016-09-28 20:07] VITALS: BP 162/72
[2016-09-28] MEDS: hydrOXYzine 25 MG TAB PO SCH (21:52)
[2016-09-28] MEDS: METOPROLOL TART 25 MG TABLET PO SCH (21:52)
[2016-09-28] MEDS: traZODone 50 MG TAB PO SCH (21:52)
[2016-09-28] MEDS: APIXABAN 5 MG TAB (ELIQUIS) PO SCH (21:53)
[2016-09-28 22:00] VITALS: BP 172/80
[2016-09-29] MEDS: HALOPERIDOL 5 MG/ML VIAL (J1630) IV PRN (00:57)
[2016-09-29 04:36] LABS: BASO % 0.2 % (0.0-1.0); EOS # 0.1 K/mm3 (0.0-0.50); EOS % 1.1 % (0.0-3.0); LARGE UNSTAINED CELL # 0.2 K/mm3 (0.0-0.4); LARGE UNSTAINED CELL % 2.2 % (0.0-4.0); LYMPH # 2.1 K/mm3 (1.5-4.5); LYMPH % 22.7 % (24.0-44.0); MEAN CORPUSCULAR HEMOGLOBIN 33.7 pg (27.0-33.0); MEAN CORPUSCULAR HGB CONC 33.1 g/dl (32.0-36.5); MEAN CORPUSCULAR VOLUME 101.8 fl (80.0-96.0); MONO # 0.6 K/mm3 (0.0-0.8); MONO % 6.1 % (0.0-5.0); NEUTROPHILS # 6.3 K/mm3 (1.8-7.7); NEUTROPHILS % 67.7 % (36.0-66.0); PLATELET COUNT, AUTOMATED 243 k/mm3 (150-450); WHITE BLOOD COUNT 9.3 K/mm3 (4.0-10.0)
[2016-09-29 05:02] LABS: ALBUMIN 3.1 GM/DL (3.2-5.2); ALBUMIN/GLOBULIN RATIO 1.03 (1.00-1.93); ALKALINE PHOSPHATASE 55 U/L (45-117); ALT/SGPT 34 U/L (12-78); ANION GAP 7 MEQ/L (8-16); AST/SGOT 15 U/L (15-37); BILIRUBIN,TOTAL 0.7 MG/DL (0.2-1.0); BLOOD UREA NITROGEN 17 MG/DL (7-18); CALCIUM LEVEL 8.5 MG/DL (8.8-10.2); CARBON DIOXIDE LEVEL 29 MEQ/L (21-32); CHLORIDE LEVEL 108 MEQ/L (98-107); CREATININE FOR GFR 1.15 MG/DL (0.70-1.30); GLOMERULAR FILTRATION RATE > 60.0 (>42); GLUCOSE, FASTING 139 MG/DL (83-110); MAGNESIUM LEVEL 1.5 MG/DL (1.8-2.4); POTASSIUM SERUM 3.4 MEQ/L (3.5-5.1); SODIUM LEVEL 144 MEQ/L (136-145); TOTAL PROTEIN 6.1 GM/DL (6.4-8.2)
[2016-09-29 06:00] VITALS: BP 162/70
--- NOTE | 2016-09-29 08:19 | REP ---
SHUNT SERIES, LATERAL SKULL X-RAY: 09/28/2016. Comparison: 09/16/2016. Clinical history: NPH, evaluate shunt valve position. Findings. Lateral view shows the shunt valve and identical orientation to that seen on the previous study. No interval change. Signed by Bradley Schafer MD 09/29/2016 08:10 A
[2016-09-29] MEDS ORDERED: amLODIPine 5 MG TAB PO SCH (09:00)
[2016-09-29] MEDS ORDERED: POTASSIUM CHLORIDE 10 MEQ SR TABLET PO ONE (09:00)
[2016-09-29] MEDS: OMEPRAZOLE 20 MG CAP PO SCH (09:08)
[2016-09-29] MEDS: METOPROLOL TART 25 MG TABLET PO SCH ×2 (09:08→20:27)
[2016-09-29] MEDS: CYANOCOBALAMIN 500 MCG TAB PO SCH (09:08)
[2016-09-29] MEDS: hydrOXYzine 25 MG TAB PO SCH (09:09)
[2016-09-29] MEDS: MAGNESIUM OXIDE 400 MG TAB (MAG-OX) PO SCH (09:09)
[2016-09-29] MEDS: VITAMIN D 1,000 INTERNATIONAL UNITS TABLET PO SCH (09:09)
[2016-09-29] MEDS: APIXABAN 5 MG TAB (ELIQUIS) PO SCH ×2 (09:09→20:27)
[2016-09-29] MEDS: ATORVASTATIN 20 MG TAB PO SCH (09:09)
[2016-09-29] MEDS: PARoxetine 20 MG TAB PO SCH (09:09)
[2016-09-29] MEDS: ALLOPURINOL 300 MG TAB PO SCH (09:09)
[2016-09-29] MEDS ORDERED: amLODIPine 5 MG TAB PO ONE (10:15)
--- NOTE | 2016-09-29 10:30 | IPN ---
DATE: 09/29/2016 76-year-old gentleman seen at bedside. Resting comfortably. Tolerating meals. No specific complaints; however, he does still appear to be pleasantly confused, which appears to be his baseline. OBJECTIVE: VITAL SIGNS: Temperature is 98, pulse 60, respiratory rate is 16, blood pressure is 162/70, SpO2 is 95% on room air. GENERAL: The patient appears to be in no acute distress. He is alert and oriented. HEENT: Unremarkable. LUNGS: Clear. HEART: Regular rate and rhythm. ABDOMEN: Soft. EXTREMITIES: No edema. No calf tenderness. LABORATORY DATA: White count 9.3, hemoglobin 12.2, platelets 243. Sodium 144, potassium 3.4, which we will supplement, chloride is 108, bicarbonate 29, anion gap 7, BUN 17, creatinine 1.15, glucose 139, magnesium 1.5, we will supplement. AST 15, ALT 34, alkaline phosphatase 55, troponin 0.02, albumin 3.1. ASSESSMENT AND PLAN: 1. Normal pressure hypertension, status post shunt in December 2013. Dr. Willson has seen the patient who felt that the shunt is working appropriately. 2. Dementia, which appears to be advanced. Apparently, he has had a brain biopsy in the past that did demonstrate Alzheimer's dementia. The concern is that the patient's can no longer provide care for him in the home, and we are currently seeking placement for him. 3. Status post CVA with right sided weakness in April 2015. No further issues. 4. History of prostate cancer in 2000, status post surgery and radiation. 5. Hypertension. We will increase his Norvasc to 10 mg starting today. 6. Neuropathy. Continue with B12 supplementation. 7. Gastroesophageal reflux disease (GERD). Continue on omeprazole. 8. Atrial fibrillation, rate controlled on metoprolol and anticoagulated on Eliquis. 9. Hyperlipidemia. Continue on Lipitor. 10. Depression. Continue on paroxetine and trazodone. 11. Deep vein thrombosis (DVT) prophylaxis. The patient is currently on Eliquis. DISPOSITION: Currently awaiting placement.
[2016-09-29 14:00] VITALS: BP 142/68
[2016-09-29 18:00] VITALS: BP 170/80
[2016-09-29] MEDS: traZODone 50 MG TAB PO SCH (20:27)
[2016-09-29] MEDS: risperiDONE 0.25 MG TAB PO SCH (20:27)
[2016-09-29 22:00] VITALS: BP 148/64
[2016-09-30] MEDS: HALOPERIDOL 5 MG/ML VIAL (J1630) IV PRN ×2 (00:05→16:53)
[2016-09-30 06:00] VITALS: BP 160/82
[2016-09-30 06:04] LABS: BASO % 0.2 % (0.0-1.0); EOS # 0.2 K/mm3 (0.0-0.50); EOS % 1.7 % (0.0-3.0); LARGE UNSTAINED CELL # 0.3 K/mm3 (0.0-0.4); LARGE UNSTAINED CELL % 2.9 % (0.0-4.0); LYMPH % 22.9 % (24.0-44.0); MEAN CORPUSCULAR HEMOGLOBIN 33.5 pg (27.0-33.0); MEAN CORPUSCULAR HGB CONC 33.1 g/dl (32.0-36.5); MEAN CORPUSCULAR VOLUME 101.3 fl (80.0-96.0); MONO # 0.7 K/mm3 (0.0-0.8); MONO % 7.7 % (0.0-5.0); NEUTROPHILS # 5.7 K/mm3 (1.8-7.7); NEUTROPHILS % 64.7 % (36.0-66.0); PLATELET COUNT, AUTOMATED 253 k/mm3 (150-450); RED CELL DISTRIBUTION WIDTH 13.2 % (11.5-14.5); WHITE BLOOD COUNT 8.8 K/mm3 (4.0-10.0)
[2016-09-30 06:20] LABS: ALBUMIN/GLOBULIN RATIO 0.94 (1.00-1.93); BILIRUBIN,TOTAL 0.7 MG/DL (0.2-1.0); CALCIUM LEVEL 8.8 MG/DL (8.8-10.2); CREATININE FOR GFR 1.24 MG/DL (0.70-1.30); MAGNESIUM LEVEL 1.8 MG/DL (1.8-2.4); POTASSIUM SERUM 4.1 MEQ/L (3.5-5.1); TOTAL PROTEIN 6.2 GM/DL (6.4-8.2)
[2016-09-30] MEDS: APIXABAN 5 MG TAB (ELIQUIS) PO SCH ×2 (08:40→20:16)
[2016-09-30] MEDS: ALLOPURINOL 300 MG TAB PO SCH (08:40)
[2016-09-30] MEDS: risperiDONE 0.25 MG TAB PO SCH ×2 (08:40→20:16)
[2016-09-30] MEDS: VITAMIN D 1,000 INTERNATIONAL UNITS TABLET PO SCH (08:40)
[2016-09-30] MEDS: ATORVASTATIN 20 MG TAB PO SCH (08:40)
[2016-09-30] MEDS: MAGNESIUM OXIDE 400 MG TAB (MAG-OX) PO SCH (08:40)
[2016-09-30] MEDS: PARoxetine 20 MG TAB PO SCH (08:41)
[2016-09-30] MEDS: CYANOCOBALAMIN 500 MCG TAB PO SCH (08:41)
[2016-09-30] MEDS: OMEPRAZOLE 20 MG CAP PO SCH (08:41)
[2016-09-30] MEDS: amLODIPine 10 MG TAB PO SCH (08:43)
[2016-09-30] MEDS: METOPROLOL TART 25 MG TABLET PO SCH ×2 (08:43→20:16)
[2016-09-30] MEDS: DOCUSATE SODIUM 100 MG CAP PO PRN (08:46)
[2016-09-30 14:00] VITALS: BP 143/69
[2016-09-30] MEDS: traZODone 50 MG TAB PO SCH (20:16)
--- NOTE | 2016-09-30 21:06 | EDDOCDS ---
Physician Documentation [facility] Name: Edi Sweeney Age: 76 yrs Sex: Male : 1940 Arrival Date: 09/28/2016 Time: 11:57 Bed 10 Private MD: Venus Amin E Disposition: 09/28/16 14:15 Hospitalization ordered by Jimmie Delong for Inpatient Admission. Preliminary diagnosis is Altered mental status, unspecified. - Bed requested for 4 [place]. - Status is Inpatient Admission. hs1 - Condition is Stable. - Problem is an ongoing problem. - Symptoms are unchanged. Historical: - Allergies: PENICILLINS; - Home Meds: 1. Eliquis 5 mg oral tab 1 tab daily (Last dose: 09/28/2016 07:00) 2. Doc-Q-Lace 100 mg oral cap 1 cap once daily (Last dose: 09/24/2016 07:00) 3. atorvastatin 20 mg oral tab 1 tab once daily (Last dose: 09/27/2016 20:15) 4. metoprolol tartrate 25 mg Oral tab 1 tab once daily (Last dose: 09/28/2016 07:00) 5. trazodone 50 mg Oral tab 0.5 tab (Last dose: 09/27/2016 20:15) 6. allopurinol 300 mg Oral tab 1 tab once daily (Last dose: 09/28/2016 07:00) 7. paroxetine HCl 20 mg Oral tab 1 tab once daily (Last dose: 09/28/2016 07:00) 8. omeprazole 20 mg Oral cpDR 1 cap once daily (Last dose: 09/28/2016 07:00) 9. hydroxyzine HCl 25 mg Oral tab (Last dose: 09/27/2016 20:15) 10. amlodipine 5 mg Oral tab 1 tab once daily (Last dose: 09/28/2016 07:00) 11. Vitamin B-12 1,000 mcg Oral tab daily (Last dose: 09/28/2016 07:00) 12. Vitamin D3 2,000 unit oral cap daily (Last dose: 09/28/2016 07:00) - PMHx: normal pressure hydrocephalus; Dementia; Arthritis; neuropathy of arms and legs; prostate cancer; lumbar fracture; Stroke; - PSHx: prostate surgery; hydrocephalus shunt insertion; Prostatectomy; right sided head shunt placement; - Social history: Smoking status: Patient states was never smoker of tobacco. No barriers to communication noted, The patient speaks fluent Italian. - Family history: Not pertinent. - : The pt / caregiver states he / she is on anticoagulants: Eliqu Home medication list is obtained from family members. - Exposure Risk Screening:: None identified. Vital Signs: 09/28 11:59 BP 151 / 79; Pulse 57; Resp 18 S; Temp 96.1(O); Pulse Ox 95% on R/A; Weight 83.91 kg / gr2 184.99 lbs (R); Height 5 ft. 10 in. (177.80 cm) (R); Pain 5/10; 13:11 Pulse 50 MON; Pulse Ox 96% ; ja5 13:12 BP 164 / 78 (auto/); ja5 13:41 Pulse 46 MON; ja5 13:42 BP 166 / 76 (auto/); ja5 14:11 Pulse 48 MON; ja5 14:12 BP 162 / 78 (auto/); ja5 14:41 Pulse 50 MON; Pulse Ox 96% ; ja5 14:42 BP 184 / 85 (auto/); ja5 15:11 Pulse 52 MON; Pulse Ox 94% ; ja5 15:12 BP 180 / 86 (auto/); ja5 15:30 Pulse 58 MON; Pulse Ox 88% ; ja5 15:33 BP 189 / 83 (auto/); ja5 18:00 BP 171 / 78; Pulse 65; Resp 18; Temp 98.1(O); Pulse Ox 95% on R/A; ead 19:44 BP 156 / 79; Pulse 66; Resp 18; Temp 99.1(TE); Pulse Ox 94% on R/A; Pain 0/10; mlc 11:59 Body Mass Index 26.54 (83.91 kg, 177.80 cm) gr2 MDM: 12:08 Upholstery Tech/Pulse Ox/q 15 min VS ordered. br1 12:08 Accucheck ordered. br1 12:08 IV Saline Lock ordered. br1 12:08 Rhythm Strip to chart ordered. br1 12:09 CBC with Diff Ordered. EDMS 12:09 Cardiac Injury Profile Ordered. EDMS 12:09 Liver Profile Ordered. EDMS 12:09 MED Profile Ordered. EDMS 12:09 Thyroid Stimulating Hormone Ordered. EDMS 12:09 Troponin Ordered. EDMS 12:09 ECG WITH READING ER PHYS+CARDIAG ordered. EDMS 12:25 Shunt Series Ordered. EDMS 12:25 CT Head Without Contrast Ordered. EDMS 12:54 Fingerstick Blood Sugar Ordered. EDMS 13:42 CBC with Diff Reviewed. ke 13:42 Liver Profile Reviewed. ke 13:42 MED Profile Reviewed. ke 13:42 Fingerstick Blood Sugar Reviewed. ke 13:42 Cardiac Injury Profile Reviewed. ke 13:42 Thyroid Stimulating Hormone Reviewed. ke 13:42 Troponin Reviewed. ke 13:42 CT Head Without Contrast Reviewed. ke 13:59 Financial registration complete. lg 13:59 BED REQUEST+ADM ordered. EDMS 14:13 UA Ordered. EDMS 14:13 Urine Culture Ordered. EDMS 14:49 Admission / Observation Status ordered. EDMS 14:49 2 GRAM SODIUM DIET ordered. EDMS 14:50 CARDIAC INJURY PROFILE Ordered. EDMS 14:50 TROPONIN Ordered. EDMS 14:50 URINALYSIS Ordered. EDMS 14:50 URINE CULTURE Ordered. EDMS 14:50 BLOOD CULTURES Ordered. EDMS 14:51 PHYSICAL THERAPY EVAL & TREAT ordered. EDMS 14:52 [facility] Payment Agreement was scanned into [employer] and attached to record. lg 15:43 hydrOXYzine 25 mg PO once ordered. jc4 16:27 T-Sheet-- Draft Copy was scanned into [employer] and attached to record. klr 19:31 CARDIAC INJURY PROFILE Ordered. EDMS 19:31 CARDIAC INJURY PROFILE Ordered. EDMS 19:31 TROPONIN Ordered. EDMS 19:31 TROPONIN Ordered. EDMS 19:31 CBC WITH DIFFERENTIAL Ordered. EDMS 19:31 COMPLETE COMPHRENSIVE METABOLI Ordered. EDMS 19:31 MAGNESIUM LEVEL Ordered. EDMS 20:13 SHUNT SERIES Ordered. EDMS 09/29 10:58 ECG/EKG was scanned into [employer] and attached to record. gb 11:00 Trend VS was scanned into [employer] and attached to record. Point of Care Testing: Blood Glucose: 09/28 12:46 Blood Glucose: 191 mg/dL; jc4 Ranges: Administered Medications: 15:43 Drug: hydrOXYzine 25 mg [hydroxyzine HCl 25 mg tablet (1 tabs)] Route: PO; jc4 Signatures: Dispatcher [employer] EDMS Rina Sigala, Reg Reg gb Antonia Mast, Reg Reg lg Elsner, Albert, COATING MACHINE FEEDER COATING MACHINE FEEDER Jeff Barrios MD MD br1 Sherry Ghosh RN RN [facility] Deb Valdez RN RN jc4 Marie Mcnamara RN RN mlc Redder, Kathie klr Gosselin, Lisa, RN RN lmg Anderson, Jessica, RN RN ja5 The chart was reviewed and I authenticate all verbal orders and agree with the evaluation and treatment provided.Corrections: (The following items were deleted from the chart) 12:43 12:18 Home Meds: Eliquis 5 mg oral tab 1 tab daily; [place] [id number] 12:43 12:18 Home Meds: Doc-Q-Lace 100 mg oral cap 1 cap once daily; [place] [id number] 12:43 12:18 Home Meds: atorvastatin 20 mg oral tab 1 tab once daily; [place] [address] 12:43 12:18 Home Meds: metoprolol tartrate 25 mg Oral tab 1 tab once daily; [place] [id number] 12:43 12:18 Home Meds: trazodone 50 mg oral tab 0.5 tab; [place] [address] 12:43 12:18 Home Meds: allopurinol 300 mg Oral tab 1 tab once daily; [place] [address] 12:43 12:18 Home Meds: paroxetine HCl 20 mg Oral tab 1 tab once daily; [place] [address] 12:43 12:18 Home Meds: omeprazole 20 mg Oral cpDR 1 cap once daily; [place] [address] 12:43 12:18 Home Meds: hydroxyzine HCl 25 mg Oral tab; [place] [address] 12:51 12:41 The pt / caregiver states he / she is not on anticoagulants. ja5 jc4 Attachments: 14:52 [facility] Payment Agreement lg 16:27 T-Sheet-- Draft Copy [facility] 09/29 10:58 ECG/EKG gb Chart Complete MTDD
--- NOTE | 2016-09-30 21:06 | EDDOCDS ---
Nurse's Notes [facility] Name: Edi Sweeney Age: 76 yrs Sex: Male : 1940 Arrival Date: 09/28/2016 Time: 11:57 Bed 10 Private MD: Venus Amin E Diagnosis: Altered mental status, unspecified Presentation: 09/28 12:14 Presenting complaint: states: history of dementia and has been getting more hs1 volatile at night with her and cannot recognize home anymore. Patient at this time is cooperative and is pleasant. Patient per is getting more and more forgetful. Patient evaluated at Dr Amin office today and they were sent here for further evaluation. Adult Sepsis Screening: The patient does not have new or worsening altered mentation. Patient's respiratory rate is less than 22. Systolic blood pressure is greater than 100. Patient has a qSOFA score of 0- Negative Sepsis Screen. Suicide/Homicide risk assessment- the patient denies having any suicidal and/or homicidal ideations and does not present with any other emotional, behavioral or mental health complaints. 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 Transition of care: patient was received from a primary care office; Dr Amin. 12:14 Acuity: ELIZABETH Level 3 hs1 12:14 Method Of Arrival: Walkin/Carried/Asstd hs1 Historical: - Allergies: PENICILLINS; - Home Meds: 1. Eliquis 5 mg oral tab 1 tab daily (Last dose: 09/28/2016 07:00) 2. Doc-Q-Lace 100 mg oral cap 1 cap once daily (Last dose: 09/24/2016 07:00) 3. atorvastatin 20 mg oral tab 1 tab once daily (Last dose: 09/27/2016 20:15) 4. metoprolol tartrate 25 mg Oral tab 1 tab once daily (Last dose: 09/28/2016 07:00) 5. trazodone 50 mg Oral tab 0.5 tab (Last dose: 09/27/2016 20:15) 6. allopurinol 300 mg Oral tab 1 tab once daily (Last dose: 09/28/2016 07:00) 7. paroxetine HCl 20 mg Oral tab 1 tab once daily (Last dose: 09/28/2016 07:00) 8. omeprazole 20 mg Oral cpDR 1 cap once daily (Last dose: 09/28/2016 07:00) 9. hydroxyzine HCl 25 mg Oral tab (Last dose: 09/27/2016 20:15) 10. amlodipine 5 mg Oral tab 1 tab once daily (Last dose: 09/28/2016 07:00) 11. Vitamin B-12 1,000 mcg Oral tab daily (Last dose: 09/28/2016 07:00) 12. Vitamin D3 2,000 unit oral cap daily (Last dose: 09/28/2016 07:00) - PMHx: normal pressure hydrocephalus; Dementia; Arthritis; neuropathy of arms and legs; prostate cancer; lumbar fracture; Stroke; - PSHx: prostate surgery; hydrocephalus shunt insertion; Prostatectomy; right sided head shunt placement; - Social history: Smoking status: Patient states was never smoker of tobacco. No barriers to communication noted, The patient speaks fluent Lebanese. - Family history: Not pertinent. - : The pt / caregiver states he / she is on [facility]agulants[facility] [place] [facility] is obtained from family members. - Exposure Risk Screening:: None identified. Screenin:43 Screening information is obtained from the patient, family members. Fall risk: At risk ja5 due to prior history of falls. Assistance ADL's: Requires assistance with meal preparation, this assistance is provided by family members, bathing, assistance is provided by family members, dressing, assistance is provided by family members, toileting, assistance is provided by family members, housework, assistance is provided by family members, medication administration, assistance is provided by family members. Abuse/DV Screen: The patient / caregiver reports he/she is: not in a situation that causes fear, pain or injury. Nutritional screening: On no prescribed diet. 12:51 Advance Directives: Currently, there is a health care proxy, Kathy Sweeney, . There ja5 is an active DNR order but there is no copy available at this time. There is no living will. There is an active Power of Watch Commander, Kathy Sweeney, . home support is adequate. Assessment: 12:53 General: Appears in no apparent distress, Behavior is cooperative. ja5 15:37 General: Patient is awake, is having some confusion and restlessness. He is attempting ja5 to get out of bed at this time. Monitors were removed and patient was repositioned for comfort. Patient is in stretcher, family at bedside.. Neurological: Level of Consciousness is awake, confused, Oriented to person. 15:43 General: at nurse's station states that patient is becoming agitated. Pt found to jc4 be slid down on stretcher. Pt repositioned. Pt is alert to person. No distress noted at this time. Spoke with Dr. Delong who states to go ahead and administer dose of Hydroxyzine now. Pt is reluctant to take pill, states, "give it to her". Pt points to wall while verbalizing this. Pt administered dose of medication, declines to open mouth to check to see if pill is gone, but is willing to take another sip of water and swallows without difficulty. 16:03 General: Pt lying on stretcher. Smiling, cooperative. Color pink, skin warm and dry. jc4 Respirations easy and full. Family at bedside, attentive. Aware awaiting bed assignment. Call schulz in reach. 16:35 General: Pt ambulating in hallway, states, "there he goes again". Pt has slow jc4 steady gait but normally uses walker at home. aware that sitter has been requested for patient. She states, "they better not talk to him or engage him, because it just makes him worse". Pt sitting in bedside chair. TV is turned on and patient has been given Jose Eduardo frias and terrie raven. 17:38 General: Patient sitting up in chair, sitter in room, patient appears to be calm and ja5 relaxed at this time.. 19:33 General: Appears in no apparent distress, comfortable, Behavior is cooperative. mlc General: Family and sitter at bedside. IV site clear. . Pain: Denies pain. Neurological: Level of Consciousness is awake, obeys commands, Oriented to person. Respiratory: Airway is patent Respiratory effort is even, unlabored, Respiratory pattern is regular. Derm: Skin is normal. Vital Signs: 11:59 BP 151 / 79; Pulse 57; Resp 18 S; Temp 96.1(O); Pulse Ox 95% on R/A; Weight 83.91 kg gr2 (R); Height 5 ft. 10 in. (177.80 cm) (R); Pain 5/10; 13:11 Pulse 50 MON; Pulse Ox 96% ; ja5 13:12 BP 164 / 78 (auto/); ja5 13:41 Pulse 46 MON; ja5 13:42 BP 166 / 76 (auto/); ja5 14:11 Pulse 48 MON; ja5 14:12 BP 162 / 78 (auto/); ja5 14:41 Pulse 50 MON; Pulse Ox 96% ; ja5 14:42 BP 184 / 85 (auto/); ja5 15:11 Pulse 52 MON; Pulse Ox 94% ; ja5 15:12 BP 180 / 86 (auto/); ja5 15:30 Pulse 58 MON; Pulse Ox 88% ; ja5 15:33 BP 189 / 83 (auto/); ja5 18:00 BP 171 / 78; Pulse 65; Resp 18; Temp 98.1(O); Pulse Ox 95% on R/A; ead 19:44 BP 156 / 79; Pulse 66; Resp 18; Temp 99.1(TE); Pulse Ox 94% on R/A; Pain 0/10; mlc 11:59 Body Mass Index 26.54 (83.91 kg, 177.80 cm) gr2 Vitals: 11:59 Log In Time: September 28, 2016 at 11:59. RN notified that patient meets Red Flag gr2 criteria. ED Course: 11:58 Patient visited by Camille Cruz. gr2 11:58 Patient moved to Waiting gr2 11:59 Venus Amin is Private Physician. gr2 12:03 Patient visited by Camille Cruz. gr2 12:03 Patient moved to Pre RCE gr2 12:04 Deb Valdez, RN is Primary Nurse. gr2 12:04 Patient moved to 10 gr2 12:14 EKG done. (by ED staff). Reviewed by Jeff Barboza MD. ar3 12:15 Triage Initiated hs1 12:19 Patient visited by Imani Modi PCA. ar3 12:46 Inserted saline lock: 20 gauge in right antecubital area The patient tolerated the jc4 procedure well. 12:46 CBC with Diff Sent. jc4 12:46 Cardiac Injury Profile Sent. jc4 12:46 Liver Profile Sent. jc4 12:47 MED Profile Sent. jc4 12:47 Thyroid Stimulating Hormone Sent. jc4 12:47 Troponin Sent. jc4 13:03 Patient visited by Jessica Yanes PCA. ct3 13:29 CT Head Without Contrast Returned. EDMS 13:30 Albert Tellez FNP is [facility]. ke 13:30 Patient visited by Albert Tellez FNP. ke 13:30 Patient visited by Albert Tellez FNP. ke 13:58 Patient visited by Albert Tellez FNP. ke 14:14 Jimmie Delong MD is Hospitalizing Provider. ke 14:22 Shunt Series Returned. EDMS 14:52 [facility] [place] was scanned into [employer] and attached to record. lg 15:00 Urine Culture Sent. ct3 15:00 UA Sent. ct3 15:44 Patient visited by Amy Tillman,CESARIO. ja5 16:27 T-Sheet-- Draft Copy was scanned into [employer] and attached to record. klr 17:02 Primary Nurse role handed off by Deb Valdez, CESARIO jc4 17:55 Diet: 2 gram sodium diet given to patient.. ct3 17:56 Patient visited by Jessica Yanes PCA. ct3 18:01 Patient visited by Indigo Luna,CESARIO. ead 18:15 CT Head Without Contrast Returned. EDMS 19:23 Marie Mcnamara,RN is Primary Nurse. mlc 19:34 Patient visited by Marie Mcnamara,CESARIO. mlc 19:42 IV is intact, is free of redness or swelling. No procedures done that require mlc assistance. 19:43 The patient / caregiver is instructed regarding the plan of care and ED course. mlc reviewed with family. 09/29 10:58 ECG/EKG was scanned into [employer] and attached to record. gb 11:00 Trend VS was scanned into [employer] and attached to record. gb Administered Medications: 09/28 15:43 Drug: hydrOXYzine 25 mg [hydroxyzine HCl 25 mg tablet (1 tabs)] Route: PO; jc4 Attachments: 11:00 Trend VS gb Point of Care Testing: Blood Glucose: 09/28 12:46 Blood Glucose: 191 mg/dL; jc4 Ranges: Order Results: Lab Order: CBC with Diff; SPEC'M 09/28/16 12:44 Test: WHITE BLOOD COUNT; Value: 8.6; Range: 4.0-10.0; Units: K/mm3; Status: F Test: RED BLOOD COUNT; Value: 4.06; Range: 4.30-6.10; Abnormal: Below low normal; Units: M/mm3; Status: F Test: HEMOGLOBIN; Value: 13.7; Range: 14.0-18.0; Abnormal: Below low normal; Units: g/dl; Status: F Test: HEMATOCRIT; Value: 41.4; Range: 42.0-52.0; Abnormal: Below low normal; Units: %; Status: F Test: MEAN CORPUSCULAR VOLUME; Value: 102.2; Range: 80.0-96.0; Abnormal: Above high normal; Units: fl; Status: F Test: MEAN CORPUSCULAR HEMOGLOBIN; Value: 33.7; Range: 27.0-33.0; Abnormal: Above high normal; Units: pg; Status: F Test: MEAN CORPUSCULAR HGB CONC; Value: 33.0; Range: 32.0-36.5; Units: g/dl; Status: F Test: RED CELL DISTRIBUTION WIDTH; Value: 13.2; Range: 11.5-14.5; Units: %; Status: F Test: PLATELET COUNT, AUTOMATED; Value: 301; Range: 150-450; Units: k/mm3; Status: F Test: NEUTROPHILS %; Value: 77.2; Range: 36.0-66.0; Abnormal: Above high normal; Units: %; Status: F Test: LYMPH %; Value: 16.1; Range: 24.0-44.0; Abnormal: Below low normal; Units: %; Status: F Test: MONO %; Value: 4.0; Range: 0.0-5.0; Units: %; Status: F Test: EOS %; Value: 0.9; Range: 0.0-3.0; Units: %; Status: F Test: BASO %; Value: 0.3; Range: 0.0-1.0; Units: %; Status: F Test: LARGE UNSTAINED CELL %; Value: 1.5; Range: 0.0-4.0; Units: %; Status: F Test: NEUTROPHILS #; Value: 6.7; Range: 1.8-7.7; Units: K/mm3; Status: F Test: LYMPH #; Value: 1.4; Range: 1.5-4.5; Abnormal: Below low normal; Units: K/mm3; Status: F Test: MONO #; Value: 0.3; Range: 0.0-0.8; Units: K/mm3; Status: F Test: EOS #; Value: 0.1; Range: 0.0-0.50; Units: K/mm3; Status: F Test: BASO #; Value: 0.0; Range: 0.0-0.2; Units: K/mm3; Status: F Test: LARGE UNSTAINED CELL #; Value: 0.1; Range: 0.0-0.4; Units: K/mm3; Status: F Lab Order: Cardiac Injury Profile; SPEC'M 09/28/16 12:44 Test: CPK CREATINE PHOSPHOKINASE; Value: 67; Range: 39-308; Units: U/L; Status: F Test: CK-MB VALUE MASS; Value: 1.6; Range: 0.0-3.6; Units: NG/ML; Status: F Test: MB/CK RELATIVE INDEX; Value: 2.38; Range: < OR =4; Status: F Test Note: ; DIAGNOSIS CRITERIA MMB ng/ml Relative Index (RI) NON-AMI < or = 5 N/A FLORIAN ZONE > 5 < or = 4 AMI > 5 > 4 Lab Order: Liver Profile; SPEC'M 09/28/16 12:44 Test: AST/SGOT; Value: 20; Range: 15-37; Units: U/L; Status: F Test: ALT/SGPT; Value: 42; Range: 12-78; Units: U/L; Status: F Test: ALKALINE PHOSPHATASE; Value: 61; Range: 45-117; Units: U/L; Status: F Test: BILIRUBIN,TOTAL; Value: 0.7; Range: 0.2-1.0; Units: MG/DL; Status: F Test: BILIRUBIN,DIRECT; Value: 0.2; Range: 0.0-0.2; Units: MG/DL; Status: F Test: TOTAL PROTEIN; Value: 7.6; Range: 6.4-8.2; Units: GM/DL; Status: F Test: ALBUMIN; Value: 3.7; Range: 3.2-5.2; Units: GM/DL; Status: F Test: ALBUMIN/GLOBULIN RATIO; Value: 0.95; Range: 1.00-1.93; Abnormal: Below low normal; Status: F Lab Order: MED Profile; SPEC'M 09/28/16 12:44 Test: GLUCOSE, FASTING; Value: 182; Range: 83-110; Abnormal: Above high normal; Units: MG/DL; Status: F Test: BLOOD UREA NITROGEN; Value: 20; Range: 7-18; Abnormal: Above high normal; Units: MG/DL; Status: F Test: CREATININE FOR GFR; Value: 1.39; Range: 0.70-1.30; Abnormal: Above high normal; Units: MG/DL; Status: F Test: GLOMERULAR FILTRATION RATE; Value: 52.6; Range: >42; Status: F Test: SODIUM LEVEL; Value: 142; Range: 136-145; Units: MEQ/L; Status: F Test: POTASSIUM SERUM; Value: 3.9; Range: 3.5-5.1; Units: MEQ/L; Status: F Test: CHLORIDE LEVEL; Value: 105; Range: 98-107; Units: MEQ/L; Status: F Test: CARBON DIOXIDE LEVEL; Value: 27; Range: 21-32; Units: MEQ/L; Status: F Test: ANION GAP; Value: 10; Range: 8-16; Units: MEQ/L; Status: F Test: CALCIUM LEVEL; Value: 8.9; Range: 8.8-10.2; Units: MG/DL; Status: F Test Note: ; Units are mL/min/1.73 m2 Chronic Kidney Disease Staging per NKF: Stage I & II GFR >=60 Normal to Mildly Decreased Stage III GFR 30-59 Moderately Decreased Stage IV GFR 15-29 Severely Decreased Stage V GFR <15 Very Little GFR Left ESRD GFR <15 on ACTUARIAL ANALYST Lab Order: Thyroid Stimulating Hormone; SPEC'M 09/28/16 12:44 Test: THYROID STIMULATING HORMONE; Value: 1.750; Range: 0.358-3.740; Units: uIU/ML; Status: F Lab Order: Troponin; SPEC'M 09/28/16 12:44 Test: TROPONIN I; Value: 0.02; Range: < 0.10; Units: NG/ML; Status: F Test Note: ; Troponin I Reference Interval for [employer] [place] LOCI: 99th Percentile= 0.00-0.045 ng/ml Risk Stratification: <= 0.10 ng/ml Decreased Risk for Adverse Clinical Events. 0.10-1.50 ng/ml Increased Risk for Adverse Clinical Events. Evaluation of additional criterion and/or repeat testing in 2-6 hours is suggested to rule out myocardial damage. >= 1.50 ng/ml Indicative of Myocardial Injury. Lab Order: Fingerstick Blood Sugar; SPEC'M 09/28/16 12:45 Test: BEDSIDE GLUCOSE; Value: 191; Range: 83-110; Abnormal: Above high normal; Units: MG/DL; Status: F Lab Order: UA; SPEC'M 09/28/16 14:59 Test: APPEARANCE, URINE; Value: CLEAR; Range: CLEAR; Status: F Test: COLOR, URINE; Value: YELLOW; Range: YELLOW; Status: F Test: PH,URINE; Value: 5.0; Range: 5.0-9.0; Units: UNITS; Status: F Test: SPECIFIC GRAVITY URINE AUTO; Value: 1.020; Range: 1.002-1.035; Status: F Test: PROTEIN, URINE AUTO; Value: 2+; Range: NEGATIVE; Abnormal: Above high normal; Units: mg/dL; Status: F Test: GLUCOSE, URINE (UA) AUTO; Value: NEGATIVE; Range: NEGATIVE; Units: mg/dL; Status: F Test: KETONE, URINE AUTO; Value: NEGATIVE; Range: NEGATIVE; Units: mg/dL; Status: F Test: UROBILINOGEN, URINE AUTO; Value: 0.2; Range: 0.0-2.0; Units: mg/dL; Status: F Test: BILIRUBIN, URINE AUTO; Value: NEGATIVE; Range: NEGATIVE; Status: F Test: NITRITE, URINE AUTO; Value: NEGATIVE; Range: NEGATIVE; Status: F Test: LEUKOCYTE ESTERASE, URINE AUTO; Value: NEGATIVE; Range: NEGATIVE; Status: F Test: BLOOD, URINE BLOOD; Value: NEGATIVE; Range: NEGATIVE; Status: F Test: WBC, URINE AUTO; Value: 1; Range: 0-3; Units: /HPF; Status: F Test: RBC, URINE AUTO; Value: 2; Range: 0-3; Units: /HPF; Status: F Test: BACTERIA, URINE AUTO; Value: NEGATIVE; Range: NEGATIVE; Status: F Test: SQUAMOUS EPITHELIAL CELL UR AU; Value: 0; Range: 0-6; Units: /HPF; Status: F Test: MUCUS, URINE; Value: SMALL; Range: NEGATIVE; Status: F Test: HYALINE CAST, URINE AUTO; Value: 0; Range: 0-1; Units: /LPF; Status: F Lab Order: CARDIAC INJURY PROFILE; SPEC'M 09/28/16 19:09 Test: CPK CREATINE PHOSPHOKINASE; Value: 77; Range: 39-308; Units: U/L; Status: F Test: CK-MB VALUE MASS; Value: 1.9; Range: 0.0-3.6; Units: NG/ML; Status: F Test: MB/CK RELATIVE INDEX; Value: 2.46; Range: < OR =4; Status: F Test Note: ; DIAGNOSIS CRITERIA MMB ng/ml Relative Index (RI) NON-AMI < or = 5 N/A FLORIAN ZONE > 5 < or = 4 AMI > 5 > 4 Lab Order: TROPONIN; SPEC'M 09/28/16 19:09 Test: TROPONIN I; Value: < 0.02; Range: < 0.10; Units: NG/ML; Status: F Test Note: ; Troponin I Reference Interval for [employer] LOCI: 99th Percentile= 0.00-0.045 ng/ml Risk Stratification: <= 0.10 ng/ml Decreased Risk for Adverse Clinical Events. 0.10-1.50 ng/ml Increased Risk for Adverse Clinical Events. Evaluation of additional criterion and/or repeat testing in 2-6 hours is suggested to rule out myocardial damage. >= 1.50 ng/ml Indicative of Myocardial Injury. Radiology Order: CT Head Without Contrast Test: CT Head Without Contrast REASON FOR EXAMINATION: altered eval for ich; CT brain without contrast: 09/28/2016.; ; Comparison 08/27/2016, 07/22/2015.; ; Clinical history: Altered mental status. Evaluate for intracranial hemorrhage.; Has a ventriculostomy catheter.; ; Findings: Soft tissue and bone windows are reviewed. Via a right frontal; approach, ventriculostomy drain is seen entering the frontal horn right lateral; ventricle crossing the midline terminating in the right lateral ventricle.; Maximum diameter between margins of the right and left frontal horns is now 59; mm. It was 54 mm on 08/27/2016 at the same level and 56 mm in June 2015.; This is slight increase in size of the lateral ventricles. The third ventricle; has a transverse diameter of 11.7 mm currently, previously 11.6 mm, unchanged.; Fourth ventricle also appears unchanged. There appears to be more distension of; the temporal horns of both lateral ventricles compared to the previous studies.; Diffuse atrophy is seen, greatest in the temporal and frontal lobes but present; throughout and grossly unchanged. No intracranial hemorrhage. Heavy falcine; seen calcifications anteriorly noted and some calcifications on the tentorium as; well unchanged. Brainstem intact. There is atrophy of the cerebellum; bilaterally. No vascular territory infarct, hemorrhage or mass. No extra-axial; hemorrhage or fluid collection. Ethmoid sinuses show mucosal thickening with the; frontal and sphenoid sinuses clear. Mastoids are also clear. Skull base and; calvarium are without fracture or focal lesion.; ; Impression:; ; 1. Right frontal ventriculostomy drain catheter crossing the midline with its; tip terminating in the region of the foramen of Monro on the left. This; ventriculomegaly appearance is unchanged, except that the diameter of the; bilateral frontal horns combined is 59 mm, previously 54 mm on 08/27/2016. The; third ventricle has unchanged diameter of 11.7 mm and the bilateral temporal; horns of the lateral ventricles are mildly larger compared to the previous; studies as well. No intra or extra-axial hemorrhage, mass or mass effect.; Moderately severe atrophy unchanged.; ; ; Signed by; Bradley Schafer MD 09/28/2016 05:59 P; Radiology Order: Shunt Series Test: Shunt Series REASON FOR EXAMINATION: altered mental status; SHUNT SERIES: 09/28/2016.; ; Clinical history: Altered mental status. Known ventriculoperitoneal drain.; ; Comparison: 03/17/2015.; ; Findings: The right-sided ventriculostomy catheter is seen crossing the midline; on the frontal skull view, unchanged. The catheter extends over the chest wall; from the right neck into the right upper abdomen extending down to the deep; pelvis curving laterally along the perineal gutter up into the lateral aspect of; the mid upper right abdomen. The line is intact throughout. There is; cardiomegaly with left atrial and ventricular enlargement and a tortuous; calcified aorta. There are degenerative changes in the spine and hips. Surgical; clips overlying the deep pelvis in the prostate bed. Vascular calcifications are; noted in the pelvic and femoral arteries.; ; Impression:; ; 1. Ventriculostomy drain via the right frontoparietal region across the midline; with its tip on the left and with the catheter course through the calvarium,; scalp, right neck, right chest and into the abdomen/pelvis described and intact.; ; ; Signed by; Bradley Schafer MD 09/28/2016 05:59 P; Outcome: 14:15 Decision to Hospitalize by Provider. 19:31 Admission hand-off: Report Faxed Fax receipt verified by CESARIO [place]. [facility] [place] Discharge Assessment: Patient awake, alert and oriented x 3. No cognitive and/or mlc functional deficits noted. Patient verbalized understanding of disposition instructions. patient administered narcotics - no. The following High Risk Discharge criteria are identified: None. Admitted to Med/Surg accompanied by tech, via stretcher, with chart. Condition: good Condition: stable. CT Study completed. Property :Personal belongings accompany Pt. 20:05 Patient left the ED. hs1 Signatures: Dispatcher [employer] EDMS Rina Sigala, Reg Reg gb Antonia Mast, Reg Reg lg Albert Tellez, FAMILY REUNIFICATION SPECIALIST FAMILY REUNIFICATION SPECIALIST ke Imani Modi, STACKER STACKER ar3 Sherry Ghosh RN RN 1 Deb Valdez RN RN jc4 Jessica Yanes, STACKER STACKER ct3 Camille Cruz gr2 Indigo Luna RN RN ead Booth, Mandy, RN RN mlc Redder, Kathie klr Anderson, Jessica, RN RN ja5 Corrections: (The following items were deleted from the chart) 12:43 12:18 Home Meds: Eliquis 5 mg oral tab 1 tab daily; [facility] ja5 :43 12:18 Home Meds: Doc-Q-Lace 100 mg oral cap 1 cap once daily; [facility]5 12:43 12:18 Home Meds: atorvastatin 20 mg oral tab 1 tab once daily; [facility] ja5 12:43 12:18 Home Meds: metoprolol tartrate 25 mg Oral tab 1 tab once daily; [facility]5 :43 12:18 Home Meds: trazodone 50 mg oral tab 0.5 tab; [facility] ja5 12:18 Home Meds: allopurinol 300 mg Oral tab 1 tab once daily; [facility] ja5 12:18 Home Meds: paroxetine HCl 20 mg Oral tab 1 tab once daily; [facility] ja5 12:18 Home Meds: omeprazole 20 mg Oral cpDR 1 cap once daily; [facility] ja5 12:18 Home Meds: hydroxyzine HCl 25 mg Oral tab; [facility] ja5 12:51 12:41 The pt / caregiver states he / she is not on anticoagulants. ja5 jc4 Chart Complete MTDD
--- NOTE | 2016-09-30 21:06 | EDDOCDS ---
Physician Documentation [facility] Name: Edi Sweeney Age: 76 yrs Sex: Male : 1940 Arrival Date: 09/28/2016 Time: 11:57 Bed 10 Private MD: Venus Amin E Disposition: 09/28/16 14:15 Hospitalization ordered by Jimmie Delong for Inpatient Admission. Preliminary diagnosis is Altered mental status, unspecified. - Bed requested for 4 [place]. - Status is Inpatient Admission. hs1 - Condition is Stable. - Problem is an ongoing problem. - Symptoms are unchanged. Historical: - Allergies: PENICILLINS; - Home Meds: 1. Eliquis 5 mg oral tab 1 tab daily (Last dose: 09/28/2016 07:00) 2. Doc-Q-Lace 100 mg oral cap 1 cap once daily (Last dose: 09/24/2016 07:00) 3. atorvastatin 20 mg oral tab 1 tab once daily (Last dose: 09/27/2016 20:15) 4. metoprolol tartrate 25 mg Oral tab 1 tab once daily (Last dose: 09/28/2016 07:00) 5. trazodone 50 mg Oral tab 0.5 tab (Last dose: 09/27/2016 20:15) 6. allopurinol 300 mg Oral tab 1 tab once daily (Last dose: 09/28/2016 07:00) 7. paroxetine HCl 20 mg Oral tab 1 tab once daily (Last dose: 09/28/2016 07:00) 8. omeprazole 20 mg Oral cpDR 1 cap once daily (Last dose: 09/28/2016 07:00) 9. hydroxyzine HCl 25 mg Oral tab (Last dose: 09/27/2016 20:15) 10. amlodipine 5 mg Oral tab 1 tab once daily (Last dose: 09/28/2016 07:00) 11. Vitamin B-12 1,000 mcg Oral tab daily (Last dose: 09/28/2016 07:00) 12. Vitamin D3 2,000 unit oral cap daily (Last dose: 09/28/2016 07:00) - PMHx: normal pressure hydrocephalus; Dementia; Arthritis; neuropathy of arms and legs; prostate cancer; lumbar fracture; Stroke; - PSHx: prostate surgery; hydrocephalus shunt insertion; Prostatectomy; right sided head shunt placement; - Social history: Smoking status: Patient states was never smoker of tobacco. No barriers to communication noted, The patient speaks fluent Faroese. - Family history: Not pertinent. - : The pt / caregiver states he / she is on anticoagulants: Eliqu Home medication list is obtained from family members. - Exposure Risk Screening:: None identified. Vital Signs: 09/28 11:59 BP 151 / 79; Pulse 57; Resp 18 S; Temp 96.1(O); Pulse Ox 95% on R/A; Weight 83.91 kg / gr2 184.99 lbs (R); Height 5 ft. 10 in. (177.80 cm) (R); Pain 5/10; 13:11 Pulse 50 MON; Pulse Ox 96% ; ja5 13:12 BP 164 / 78 (auto/); ja5 13:41 Pulse 46 MON; ja5 13:42 BP 166 / 76 (auto/); ja5 14:11 Pulse 48 MON; ja5 14:12 BP 162 / 78 (auto/); ja5 14:41 Pulse 50 MON; Pulse Ox 96% ; ja5 14:42 BP 184 / 85 (auto/); ja5 15:11 Pulse 52 MON; Pulse Ox 94% ; ja5 15:12 BP 180 / 86 (auto/); ja5 15:30 Pulse 58 MON; Pulse Ox 88% ; ja5 15:33 BP 189 / 83 (auto/); ja5 18:00 BP 171 / 78; Pulse 65; Resp 18; Temp 98.1(O); Pulse Ox 95% on R/A; ead 19:44 BP 156 / 79; Pulse 66; Resp 18; Temp 99.1(TE); Pulse Ox 94% on R/A; Pain 0/10; mlc 11:59 Body Mass Index 26.54 (83.91 kg, 177.80 cm) gr2 MDM: 12:08 Fine Sander/Pulse Ox/q 15 min VS ordered. br1 12:08 Accucheck ordered. br1 12:08 IV Saline Lock ordered. br1 12:08 Rhythm Strip to chart ordered. br1 12:09 CBC with Diff Ordered. EDMS 12:09 Cardiac Injury Profile Ordered. EDMS 12:09 Liver Profile Ordered. EDMS 12:09 MED Profile Ordered. EDMS 12:09 Thyroid Stimulating Hormone Ordered. EDMS 12:09 Troponin Ordered. EDMS 12:09 ECG WITH READING ER PHYS+CARDIAG ordered. EDMS 12:25 Shunt Series Ordered. EDMS 12:25 CT Head Without Contrast Ordered. EDMS 12:54 Fingerstick Blood Sugar Ordered. EDMS 13:42 CBC with Diff Reviewed. ke 13:42 Liver Profile Reviewed. ke 13:42 MED Profile Reviewed. ke 13:42 Fingerstick Blood Sugar Reviewed. ke 13:42 Cardiac Injury Profile Reviewed. ke 13:42 Thyroid Stimulating Hormone Reviewed. ke 13:42 Troponin Reviewed. ke 13:42 CT Head Without Contrast Reviewed. ke 13:59 Financial registration complete. lg 13:59 BED REQUEST+ADM ordered. EDMS 14:13 UA Ordered. EDMS 14:13 Urine Culture Ordered. EDMS 14:49 Admission / Observation Status ordered. EDMS 14:49 2 GRAM SODIUM DIET ordered. EDMS 14:50 CARDIAC INJURY PROFILE Ordered. EDMS 14:50 TROPONIN Ordered. EDMS 14:50 URINALYSIS Ordered. EDMS 14:50 URINE CULTURE Ordered. EDMS 14:50 BLOOD CULTURES Ordered. EDMS 14:51 PHYSICAL THERAPY EVAL & TREAT ordered. EDMS 14:52 [facility] Agreement was scanned into eventuosity and attached to record. lg 15:43 hydrOXYzine 25 mg PO once ordered. jc4 16:27 T-Sheet-- Draft Copy was scanned into eventuosity and attached to record. klr 19:31 CARDIAC INJURY PROFILE Ordered. EDMS 19:31 CARDIAC INJURY PROFILE Ordered. EDMS 19:31 TROPONIN Ordered. EDMS 19:31 TROPONIN Ordered. EDMS 19:31 CBC WITH DIFFERENTIAL Ordered. EDMS 19:31 COMPLETE COMPHRENSIVE METABOLI Ordered. EDMS 19:31 MAGNESIUM LEVEL Ordered. EDMS 20:13 SHUNT SERIES Ordered. EDMS 09/29 10:58 ECG/EKG was scanned into eventuosity and attached to record. gb 11:00 Trend VS was scanned into eventuosity and attached to record. Point of Care Testing: Blood Glucose: 09/28 12:46 Blood Glucose: 191 mg/dL; jc4 Ranges: Administered Medications: 15:43 Drug: hydrOXYzine 25 mg [hydroxyzine HCl 25 mg tablet (1 tabs)] Route: PO; jc4 Signatures: Dispatcher [employer] EDMS Rina Sigala, Reg Reg gb Antonia Mast, Reg Reg lg Elsner, Albert, OPTICAL STORE MANAGER OPTICAL STORE MANAGER Jeff Barrios MD MD br1 Sherry Ghosh RN RN [facility] Deb Valdez RN RN jc4 Marie Mcnamara RN RN mlc Redder, Kathie klr Gosselin, Lisa, RN RN lmg Anderson, Jessica, RN RN ja5 The chart was reviewed and I authenticate all verbal orders and agree with the evaluation and treatment provided.Corrections: (The following items were deleted from the chart) 12:43 12:18 Home Meds: Eliquis 5 mg oral tab 1 tab daily; [place] [id number] 12:43 12:18 Home Meds: Doc-Q-Lace 100 mg oral cap 1 cap once daily; [place] [id number] 12:43 12:18 Home Meds: atorvastatin 20 mg oral tab 1 tab once daily; [place] [id number] 12:43 12:18 Home Meds: metoprolol tartrate 25 mg Oral tab 1 tab once daily; [place] [id number] 12:43 12:18 Home Meds: trazodone 50 mg oral tab 0.5 tab; [place] [id number] 12:43 12:18 Home Meds: allopurinol 300 mg Oral tab 1 tab once daily; [place] [id number] 12:43 12:18 Home Meds: paroxetine HCl 20 mg Oral tab 1 tab once daily; [place] [id number] 12:43 12:18 Home Meds: omeprazole 20 mg Oral cpDR 1 cap once daily; [place] [id number] 12:43 12:18 Home Meds: hydroxyzine HCl 25 mg Oral tab; [place] [id number] 12:51 12:41 The pt / caregiver states he / she is not on anticoagulants. ja5 jc4 Attachments: 14:52 [facility] Payment Agreement lg 16:27 T-Sheet-- Draft Copy [facility] 09/29 10:58 ECG/EKG gb Chart Complete MTDD
[2016-09-30 22:00] VITALS: BP 123/78
[2016-10-01] MEDS: ACETAMINOPHEN TAB 650MG DOSE (2X325MG) PO PRN (01:40)
[2016-10-01] MEDS: risperiDONE 0.5 MG TAB PO SCH ×3 (01:50→20:46)
[2016-10-01 06:00] VITALS: BP 144/84
[2016-10-01 06:25] LABS: BASO % 0.1 % (0.0-1.0); EOS # 0.1 K/mm3 (0.0-0.50); EOS % 1.3 % (0.0-3.0); LARGE UNSTAINED CELL # 0.2 K/mm3 (0.0-0.4); LARGE UNSTAINED CELL % 2.3 % (0.0-4.0); LYMPH # 1.4 K/mm3 (1.5-4.5); LYMPH % 17.4 % (24.0-44.0); MEAN CORPUSCULAR HEMOGLOBIN 33.2 pg (27.0-33.0); MEAN CORPUSCULAR HGB CONC 32.7 g/dl (32.0-36.5); MEAN CORPUSCULAR VOLUME 101.4 fl (80.0-96.0); MONO # 0.5 K/mm3 (0.0-0.8); MONO % 6.3 % (0.0-5.0); NEUTROPHILS # 5.7 K/mm3 (1.8-7.7); NEUTROPHILS % 72.7 % (36.0-66.0); PLATELET COUNT, AUTOMATED 246 k/mm3 (150-450); RED CELL DISTRIBUTION WIDTH 13.4 % (11.5-14.5); WHITE BLOOD COUNT 7.9 K/mm3 (4.0-10.0)
[2016-10-01 06:27] LABS: ALBUMIN 3.2 GM/DL (3.2-5.2); ALBUMIN/GLOBULIN RATIO 0.94 (1.00-1.93); ALKALINE PHOSPHATASE 58 U/L (45-117); ALT/SGPT 24 U/L (12-78); ANION GAP 9 MEQ/L (8-16); AST/SGOT 11 U/L (15-37); BILIRUBIN,TOTAL 0.7 MG/DL (0.2-1.0); BLOOD UREA NITROGEN 18 MG/DL (7-18); CALCIUM LEVEL 9.2 MG/DL (8.8-10.2); CARBON DIOXIDE LEVEL 26 MEQ/L (21-32); CHLORIDE LEVEL 106 MEQ/L (98-107); CREATININE FOR GFR 1.11 MG/DL (0.70-1.30); GLOMERULAR FILTRATION RATE > 60.0 (>42); GLUCOSE, FASTING 166 MG/DL (83-110); MAGNESIUM LEVEL 1.8 MG/DL (1.8-2.4); POTASSIUM SERUM 3.8 MEQ/L (3.5-5.1); SODIUM LEVEL 141 MEQ/L (136-145); TOTAL PROTEIN 6.6 GM/DL (6.4-8.2)
[2016-10-01] MEDS: MAGNESIUM OXIDE 400 MG TAB (MAG-OX) PO SCH (08:34)
[2016-10-01] MEDS: VITAMIN D 1,000 INTERNATIONAL UNITS TABLET PO SCH (08:34)
[2016-10-01] MEDS: ATORVASTATIN 20 MG TAB PO SCH (08:35)
[2016-10-01] MEDS: PARoxetine 20 MG TAB PO SCH (08:35)
[2016-10-01] MEDS: OMEPRAZOLE 20 MG CAP PO SCH (08:35)
[2016-10-01] MEDS: METOPROLOL TART 25 MG TABLET PO SCH ×2 (08:35→20:46)
[2016-10-01] MEDS: APIXABAN 5 MG TAB (ELIQUIS) PO SCH ×2 (08:35→20:46)
[2016-10-01] MEDS: CYANOCOBALAMIN 500 MCG TAB PO SCH (08:35)
[2016-10-01] MEDS: ALLOPURINOL 300 MG TAB PO SCH (08:35)
[2016-10-01] MEDS: amLODIPine 10 MG TAB PO SCH (08:36)
[2016-10-01] MEDS: HALOPERIDOL 5 MG/ML VIAL (J1630) IV PRN (10:51)
[2016-10-01 14:00] VITALS: BP 135/72
[2016-10-01] MEDS: traZODone 50 MG TAB PO SCH (20:45)
[2016-10-01 22:00] VITALS: BP 141/80
--- NOTE | 2016-10-01 22:53 | CR ---
DATE OF CONSULTATION: 10/01/2016 CONSULTATION FOR: Dr. Gonzalez CHIEF COMPLAINT: "I am here with a friend of my family." HISTORY OF PRESENT ILLNESS: A 76-year-old male with history of Alzheimer's disease and also normal pressure hydrocephalus with a shunt placed in December 2013, status post cerebrovascular accident (CVA), hypertension, prostate cancer, gastroesophageal reflux disease (GERD), atrial fibrillation, hyperlipidemia, and depression. I was asked to evaluate the patient before placement to [facility]. During the interview, patient is sitting comfortably in the chair, is pleasant, and there is no evidence of agitation or paranoia; however, as suspected his memory, attention, and concentration are significantly impaired. Patient was disoriented in time, place, and situation, and he was thinking that the sitter was somehow related to him or his family. Asking for the behavior of the patient during the day, nursing reports that in the morning he got agitated and somewhat paranoid, and when he received 1 mg of Haldol, his agitation subsided and has been doing well since then. Patient is unable to provide any information or to fully cooperate with the mental status examination. PAST MEDICAL HISTORY: As above, patient has been diagnosed with normal pressure hydrocephalus with a shunt placed in December 2013, dementia, Alzheimer's disease, status post CVA, hypertension, prostate cancer, neuropathy, GERD, atrial fibrillation, and hyperlipidemia. PAST PSYCHIATRIC HISTORY: It is reported in the chart that the patient has been diagnosed with depression and is taking Paxil and trazodone. FAMILY HISTORY: Unable to obtain. SOCIAL HISTORY: Patient was living with his until recently. Family stated that they cannot take care of the patient any longer, since his dementia has progressed and he has become more paranoid, delusions, especially in the evenings. No other information could be obtained. SUBSTANCE ABUSE HISTORY: Unable to obtain, but it does not appear that the patient has had any problems with drugs or alcohol. LABORATORY DATA: On admission, CBC showed low red blood cells within a range of 4.06-3.71, low hemoglobin between 12.5-13.7, as well as low hematocrit. MCV is high at . CMP is unremarkable, except potassium was 3.4, glucose of 166. Liver function tests are within normal limits. UA is unremarkable. MENTAL STATUS EXAMINATION: The patient is dressed in hospital gown. Patient is pleasant and cooperative, but, again, he has been diagnosed with dementia and is unable to fully cooperate with the mental status examination. His attention, concentration, and memory are significantly impaired. His speech is poor. Has difficulty choosing the appropriate words. Has fair eye contact. Mood appeared to be euthymic. Affect is congruent with mood. Patient is disoriented in time, place, and situation. During the interview, there is no evidence of auditory or visual hallucinations or delusions. No evidence of suicidal or homicidal ideation. Judgment and insight are poor. DIAGNOSES: AXIS I: Alzheimer's disease/dementia, major depression by history. AXIS II: Deferred. AXIS III: Normal pressure hydrocephalus, dementia, status post cerebrovascular accident, prostate cancer, hypertension, neuropathy, gastroesophageal reflux disease, atrial fibrillation, hyperlipidemia. RECOMMENDATIONS: At this point, patient is doing well. Patient was pleasant. Was not showing any signs or symptoms of psychosis at the moment of the evaluation. No evidence of paranoia. It is suspected that his mental status will change intermittently throughout the day due to his advanced dementia; however, his behavior is under control, and when he becomes agitated is when he has these intermittent episodes of paranoia. I would use low dosage of as-needed psychotropic medication. This morning he took 1 mg of Haldol that was quite effective. Seroquel 12.5 mg can also be used, between 12.5-50 mg to correct agitation and insomnia.
[2016-10-01] MEDS ORDERED: traZODone 50 MG TAB PO PRN (23:45)
[2016-10-02 06:00] VITALS: BP 160/73
[2016-10-02 06:21] LABS: BASO % 0.2 % (0.0-1.0); EOS % 0.6 % (0.0-3.0); LARGE UNSTAINED CELL # 0.2 K/mm3 (0.0-0.4); LARGE UNSTAINED CELL % 2.8 % (0.0-4.0); LYMPH # 1.3 K/mm3 (1.5-4.5); LYMPH % 17.9 % (24.0-44.0); MEAN CORPUSCULAR HEMOGLOBIN 33.8 pg (27.0-33.0); MEAN CORPUSCULAR HGB CONC 32.6 g/dl (32.0-36.5); MEAN CORPUSCULAR VOLUME 103.7 fl (80.0-96.0); MONO # 0.5 K/mm3 (0.0-0.8); MONO % 7.1 % (0.0-5.0); NEUTROPHILS # 5.2 K/mm3 (1.8-7.7); NEUTROPHILS % 71.5 % (36.0-66.0); PLATELET COUNT, AUTOMATED 253 k/mm3 (150-450); RED CELL DISTRIBUTION WIDTH 13.3 % (11.5-14.5); WHITE BLOOD COUNT 7.3 K/mm3 (4.0-10.0)
[2016-10-02 06:43] LABS: ALBUMIN 3.3 GM/DL (3.2-5.2); ALBUMIN/GLOBULIN RATIO 1.03 (1.00-1.93); BILIRUBIN,TOTAL 0.8 MG/DL (0.2-1.0); CALCIUM LEVEL 8.8 MG/DL (8.8-10.2); CREATININE FOR GFR 1.27 MG/DL (0.70-1.30); GLOMERULAR FILTRATION RATE 58.4 (>42); TOTAL PROTEIN 6.5 GM/DL (6.4-8.2)
[2016-10-02] MEDS: MAGNESIUM OXIDE 400 MG TAB (MAG-OX) PO SCH (09:54)
[2016-10-02] MEDS: risperiDONE 0.5 MG TAB PO SCH ×2 (09:54→20:10)
[2016-10-02] MEDS: ALLOPURINOL 300 MG TAB PO SCH (09:54)
[2016-10-02] MEDS: amLODIPine 10 MG TAB PO SCH (09:54)
[2016-10-02] MEDS: VITAMIN D 1,000 INTERNATIONAL UNITS TABLET PO SCH (09:54)
[2016-10-02] MEDS: PARoxetine 20 MG TAB PO SCH (09:54)
[2016-10-02] MEDS: ATORVASTATIN 20 MG TAB PO SCH (09:54)
[2016-10-02] MEDS: CYANOCOBALAMIN 500 MCG TAB PO SCH (09:54)
[2016-10-02] MEDS: METOPROLOL TART 25 MG TABLET PO SCH ×2 (09:54→20:10)
[2016-10-02] MEDS: APIXABAN 5 MG TAB (ELIQUIS) PO SCH ×2 (09:54→20:10)
[2016-10-02] MEDS: OMEPRAZOLE 20 MG CAP PO SCH (09:54)
--- NOTE | 2016-10-02 12:02 | REP ---
CHEST X-RAY: Two views. HISTORY: Cough. Comparison chest x-ray June 08, 2015. FINDINGS: A right-sided ventriculoperitoneal shunt catheter is seen along with oxygen delivery tubing. The chin overlies the lung apices. Mild cardiomegaly is observed. The lungs are radiographed at a relatively low inspiratory level. No definite focal infiltrate is seen. IMPRESSION: No infiltrate seen. Low level of inspiration. Signed by Fabricio Panchal MD 10/02/2016 02:27 P
[2016-10-02 14:00] VITALS: BP 122/70
[2016-10-03 06:00] VITALS: BP 176/81
--- NOTE | 2016-10-03 06:09 | ECGEPIP ---
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
[2016-10-03 06:18] LABS: BASO % 0.1 % (0.0-1.0); EOS # 0.1 K/mm3 (0.0-0.50); EOS % 1.6 % (0.0-3.0); LARGE UNSTAINED CELL # 0.2 K/mm3 (0.0-0.4); LARGE UNSTAINED CELL % 1.8 % (0.0-4.0); LYMPH # 1.4 K/mm3 (1.5-4.5); LYMPH % 14.4 % (24.0-44.0); MEAN CORPUSCULAR HEMOGLOBIN 34.3 pg (27.0-33.0); MEAN CORPUSCULAR HGB CONC 33.1 g/dl (32.0-36.5); MEAN CORPUSCULAR VOLUME 103.7 fl (80.0-96.0); MONO # 0.7 K/mm3 (0.0-0.8); NEUTROPHILS # 6.5 K/mm3 (1.8-7.7); NEUTROPHILS % 74.1 % (36.0-66.0); PLATELET COUNT, AUTOMATED 232 k/mm3 (150-450); RED CELL DISTRIBUTION WIDTH 13.7 % (11.5-14.5); WHITE BLOOD COUNT 8.7 K/mm3 (4.0-10.0)
[2016-10-03 06:38] LABS: ALBUMIN 3.3 GM/DL (3.2-5.2); BILIRUBIN,TOTAL 0.8 MG/DL (0.2-1.0); CALCIUM LEVEL 8.7 MG/DL (8.8-10.2); CREATININE FOR GFR 1.32 MG/DL (0.70-1.30); GLOMERULAR FILTRATION RATE 55.8 (>42); POTASSIUM SERUM 3.9 MEQ/L (3.5-5.1); TOTAL PROTEIN 6.6 GM/DL (6.4-8.2)
[2016-10-03] MEDS: CYANOCOBALAMIN 500 MCG TAB PO SCH (09:19)
[2016-10-03] MEDS: PARoxetine 20 MG TAB PO SCH (09:19)
[2016-10-03] MEDS: risperiDONE 0.5 MG TAB PO SCH ×2 (09:19→22:15)
[2016-10-03] MEDS: VITAMIN D 1,000 INTERNATIONAL UNITS TABLET PO SCH (09:20)
[2016-10-03] MEDS: amLODIPine 10 MG TAB PO SCH (09:20)
[2016-10-03] MEDS: METOPROLOL TART 25 MG TABLET PO SCH ×2 (09:20→22:15)
[2016-10-03] MEDS: ATORVASTATIN 20 MG TAB PO SCH (09:20)
[2016-10-03] MEDS: MAGNESIUM OXIDE 400 MG TAB (MAG-OX) PO SCH (09:20)
[2016-10-03] MEDS: OMEPRAZOLE 20 MG CAP PO SCH (09:21)
[2016-10-03] MEDS: APIXABAN 5 MG TAB (ELIQUIS) PO SCH ×2 (09:21→22:14)
[2016-10-03] MEDS: ALLOPURINOL 300 MG TAB PO SCH (09:21)
[2016-10-03 14:00] VITALS: BP 136/75
[2016-10-03 22:00] VITALS: BP 150/80
[2016-10-04 05:58] LABS: BASO % 0.2 % (0.0-1.0); EOS # 0.2 K/mm3 (0.0-0.50); EOS % 1.7 % (0.0-3.0); LARGE UNSTAINED CELL # 0.2 K/mm3 (0.0-0.4); LARGE UNSTAINED CELL % 2.1 % (0.0-4.0); LYMPH # 1.5 K/mm3 (1.5-4.5); LYMPH % 15.1 % (24.0-44.0); MEAN CORPUSCULAR HEMOGLOBIN 34.4 pg (27.0-33.0); MEAN CORPUSCULAR HGB CONC 33.8 g/dl (32.0-36.5); MEAN CORPUSCULAR VOLUME 101.8 fl (80.0-96.0); MONO # 0.8 K/mm3 (0.0-0.8); MONO % 8.7 % (0.0-5.0); NEUTROPHILS # 6.2 K/mm3 (1.8-7.7); NEUTROPHILS % 72.3 % (36.0-66.0); PLATELET COUNT, AUTOMATED 261 k/mm3 (150-450); RED CELL DISTRIBUTION WIDTH 13.7 % (11.5-14.5); WHITE BLOOD COUNT 8.6 K/mm3 (4.0-10.0)
[2016-10-04 06:00] VITALS: BP 160/96
[2016-10-04 06:28] LABS: ALBUMIN 3.4 GM/DL (3.2-5.2); ALBUMIN/GLOBULIN RATIO 0.89 (1.00-1.93); ALKALINE PHOSPHATASE 62 U/L (45-117); ALT/SGPT 20 U/L (12-78); ANION GAP 7 MEQ/L (8-16); AST/SGOT 6 U/L (15-37); BLOOD UREA NITROGEN 19 MG/DL (7-18); CARBON DIOXIDE LEVEL 27 MEQ/L (21-32); CHLORIDE LEVEL 104 MEQ/L (98-107); CREATININE FOR GFR 1.23 MG/DL (0.70-1.30); GLOMERULAR FILTRATION RATE > 60.0 (>42); GLUCOSE, FASTING 160 MG/DL (83-110); POTASSIUM SERUM 3.9 MEQ/L (3.5-5.1); SODIUM LEVEL 138 MEQ/L (136-145); TOTAL PROTEIN 7.2 GM/DL (6.4-8.2)
[2016-10-04] MEDS: CYANOCOBALAMIN 500 MCG TAB PO SCH (09:04)
[2016-10-04] MEDS: PARoxetine 20 MG TAB PO SCH (09:04)
[2016-10-04] MEDS: APIXABAN 5 MG TAB (ELIQUIS) PO SCH ×2 (09:04→20:48)
[2016-10-04] MEDS: risperiDONE 0.5 MG TAB PO SCH ×2 (09:04→20:48)
[2016-10-04] MEDS: VITAMIN D 1,000 INTERNATIONAL UNITS TABLET PO SCH (09:05)
[2016-10-04] MEDS: OMEPRAZOLE 20 MG CAP PO SCH (09:05)
[2016-10-04] MEDS: ALLOPURINOL 300 MG TAB PO SCH (09:05)
[2016-10-04] MEDS: amLODIPine 10 MG TAB PO SCH (09:05)
[2016-10-04] MEDS: MAGNESIUM OXIDE 400 MG TAB (MAG-OX) PO SCH (09:05)
[2016-10-04] MEDS: ATORVASTATIN 20 MG TAB PO SCH (09:05)
[2016-10-04] MEDS: METOPROLOL TART 25 MG TABLET PO SCH ×2 (09:06→20:48)
[2016-10-04 14:00] VITALS: BP 143/75
[2016-10-04] MEDS: NYSTATIN 500,000 U/5 ML SUSP UDC SS SCH ×2 (17:18→20:47)
[2016-10-04] MEDS: ACETAMINOPHEN TAB 650MG DOSE (2X325MG) PO PRN (17:18)
[2016-10-04] MEDS: QUEtiapine FUMARATE 12.5 MG HALF-TAB PO SCH (20:48)
[2016-10-04 22:00] VITALS: BP 168/90
[2016-10-05 06:00] VITALS: BP 153/84
[2016-10-05 06:55] LABS: BASO % 0.2 % (0.0-1.0); EOS # 0.1 K/mm3 (0.0-0.50); EOS % 0.9 % (0.0-3.0); LARGE UNSTAINED CELL # 0.3 K/mm3 (0.0-0.4); LARGE UNSTAINED CELL % 3.3 % (0.0-4.0); LYMPH # 1.2 K/mm3 (1.5-4.5); LYMPH % 13.3 % (24.0-44.0); MEAN CORPUSCULAR HEMOGLOBIN 33.6 pg (27.0-33.0); MEAN CORPUSCULAR HGB CONC 32.9 g/dl (32.0-36.5); MEAN CORPUSCULAR VOLUME 102.2 fl (80.0-96.0); MONO # 0.8 K/mm3 (0.0-0.8); MONO % 9.1 % (0.0-5.0); NEUTROPHILS # 6.3 K/mm3 (1.8-7.7); NEUTROPHILS % 73.3 % (36.0-66.0); PLATELET COUNT, AUTOMATED 249 k/mm3 (150-450); WHITE BLOOD COUNT 8.6 K/mm3 (4.0-10.0)
[2016-10-05 07:09] LABS: ALBUMIN 3.3 GM/DL (3.2-5.2); ALBUMIN/GLOBULIN RATIO 0.97 (1.00-1.93); CREATININE FOR GFR 1.32 MG/DL (0.70-1.30); GLOMERULAR FILTRATION RATE 55.8 (>42); MAGNESIUM LEVEL 1.9 MG/DL (1.8-2.4); POTASSIUM SERUM 3.9 MEQ/L (3.5-5.1); TOTAL PROTEIN 6.7 GM/DL (6.4-8.2)
[2016-10-05] MEDS: amLODIPine 10 MG TAB PO SCH (08:20)
[2016-10-05] MEDS: VITAMIN D 1,000 INTERNATIONAL UNITS TABLET PO SCH (08:20)
[2016-10-05] MEDS: OMEPRAZOLE 20 MG CAP PO SCH (08:20)
[2016-10-05] MEDS: APIXABAN 5 MG TAB (ELIQUIS) PO SCH ×2 (08:20→20:45)
[2016-10-05] MEDS: CYANOCOBALAMIN 500 MCG TAB PO SCH (08:20)
[2016-10-05] MEDS: ATORVASTATIN 20 MG TAB PO SCH (08:20)
[2016-10-05] MEDS: NYSTATIN 500,000 U/5 ML SUSP UDC SS SCH ×4 (08:20→20:45)
[2016-10-05] MEDS: ALLOPURINOL 300 MG TAB PO SCH (08:20)
[2016-10-05] MEDS: PARoxetine 20 MG TAB PO SCH (08:21)
[2016-10-05] MEDS: MAGNESIUM OXIDE 400 MG TAB (MAG-OX) PO SCH (08:21)
[2016-10-05] MEDS: METOPROLOL TART 25 MG TABLET PO SCH ×2 (08:21→20:46)
[2016-10-05] MEDS: risperiDONE 0.5 MG TAB PO SCH ×2 (08:21→20:46)
[2016-10-05] MEDS: ACETAMINOPHEN TAB 650MG DOSE (2X325MG) PO PRN ×2 (08:22→16:29)
--- NOTE | 2016-10-05 15:34 | IPN ---
DATE: 10/05/2016 SUBJECTIVE: The patient denies any specific complaints at this time. He is oriented to person but not place, time, or situation. OBJECTIVE: VITAL SIGNS: Temperature 97.9, pulse 72, respiratory rate 20, blood pressure (BP) 153/84, oxygen saturation 97% on 2 liters. GENERAL: He is an elderly man, sleeping peacefully when I enter the room but easily arousable to verbal stimuli. He is resting peacefully. He does not appear to be agitated or in any acute distress. HEENT: He does not cooperate with cranial nerve testing. He has moist mucous membranes. No elevation in central venous pressure (CVP). CARDIOVASCULAR: S1, S2, irregularly irregular. RESPIRATORY: Clear. ABDOMEN: Obese. EXTREMITIES: No clubbing, cyanosis, or edema. LABORATORY STUDIES: WBC 8.6, hemoglobin 12.6, hematocrit 38.4, platelet count 249. Chemistry panel: Sodium 139, potassium 3.9, chloride 103, bicarbonate 29, BUN 21, creatinine 1.3. Microbiology: A urine culture and blood culture from September 28 are negative. No new imaging. ASSESSMENT AND PLAN: This is a 76-year-old man who was initially admitted on 131.17, because he had progressively worsening confusion and aggression for several weeks. 1. Behavioral changes. The patient has a history of normal pressure hydrocephalus. He had a ventriculoperitoneal (RACING MECHANIC) shunt earlier this year but has not had any significant improvement. His worsening mental status was felt to be secondary to simply progression of his dementia. At this time he is alternative level of care, currently awaiting placement in a [facility] facility. He has been seen by psychiatry, who has made medication recommendations and starting him on Seroquel. Because he appears to be more cooperative yesterday evening and today, we will discontinue his sitter. Apparently the patient has had a brain biopsy that did demonstrate Alzheimer dementia. This is documented in the chart. 2. History of a cerebrovascular accident (CVA). The patient is on a statin and anticoagulation. 3. Atrial fibrillation. The patient is rate controlled with Lopressor. He is anticoagulated with Eliquis. 4. Neuropathy. The patient is on B12 supplementation. 5. Hypertension. The patient is on Norvasc and Lopressor. 6. Mood disorder. The patient is on Paxil. 7. Hypomagnesemia. The patient is on magnesium oxide supplementation. 8. Gout. The patient is on allopurinol. 9. Vitamin D deficiency. The patient is on supplementation. 10. Deep vein thrombosis (DVT) prophylaxis. The patient is on Eliquis. DISPOSITION: The patient is currently awaiting [facility] placement.
[2016-10-05] MEDS: QUEtiapine FUMARATE 12.5 MG HALF-TAB PO SCH (20:45)
[2016-10-06] MEDS: ACETAMINOPHEN TAB 650MG DOSE (2X325MG) PO PRN (05:51)
[2016-10-06 06:00] VITALS: BP 153/87
[2016-10-06] MEDS: NYSTATIN 500,000 U/5 ML SUSP UDC SS SCH ×4 (09:13→20:30)
[2016-10-06] MEDS: MAGNESIUM OXIDE 400 MG TAB (MAG-OX) PO SCH (09:13)
[2016-10-06] MEDS: ALLOPURINOL 300 MG TAB PO SCH (09:13)
[2016-10-06] MEDS: ATORVASTATIN 20 MG TAB PO SCH (09:13)
[2016-10-06] MEDS: CYANOCOBALAMIN 500 MCG TAB PO SCH (09:13)
[2016-10-06] MEDS: VITAMIN D 1,000 INTERNATIONAL UNITS TABLET PO SCH (09:13)
[2016-10-06] MEDS: METOPROLOL TART 25 MG TABLET PO SCH ×2 (09:13→20:30)
[2016-10-06] MEDS: PARoxetine 20 MG TAB PO SCH (09:13)
[2016-10-06] MEDS: risperiDONE 0.5 MG TAB PO SCH ×2 (09:13→20:30)
[2016-10-06] MEDS: OMEPRAZOLE 20 MG CAP PO SCH (09:14)
[2016-10-06] MEDS: amLODIPine 10 MG TAB PO SCH (09:14)
[2016-10-06] MEDS: APIXABAN 5 MG TAB (ELIQUIS) PO SCH ×2 (09:14→20:30)
[2016-10-06 20:29] VITALS: BP 176/98
[2016-10-06] MEDS: QUEtiapine FUMARATE 12.5 MG HALF-TAB PO SCH (20:30)
[2016-10-07] VITALS: BP 140/71
[2016-10-07 06:00] VITALS: BP 154/83
[2016-10-07] MEDS: ATORVASTATIN 20 MG TAB PO SCH (09:09)
[2016-10-07] MEDS: MAGNESIUM OXIDE 400 MG TAB (MAG-OX) PO SCH (09:09)
[2016-10-07] MEDS: OMEPRAZOLE 20 MG CAP PO SCH (09:09)
[2016-10-07] MEDS: PARoxetine 20 MG TAB PO SCH (09:09)
[2016-10-07] MEDS: VITAMIN D 1,000 INTERNATIONAL UNITS TABLET PO SCH (09:09)
[2016-10-07] MEDS: CYANOCOBALAMIN 500 MCG TAB PO SCH (09:09)
[2016-10-07] MEDS: METOPROLOL TART 25 MG TABLET PO SCH ×2 (09:10→19:59)
[2016-10-07] MEDS: risperiDONE 0.5 MG TAB PO SCH ×2 (09:10→19:57)
[2016-10-07] MEDS: APIXABAN 5 MG TAB (ELIQUIS) PO SCH ×2 (09:10→19:57)
[2016-10-07] MEDS: amLODIPine 10 MG TAB PO SCH (09:10)
[2016-10-07] MEDS: ALLOPURINOL 300 MG TAB PO SCH (09:10)
[2016-10-07] MEDS: NYSTATIN 500,000 U/5 ML SUSP UDC SS SCH ×4 (09:10→20:01)
[2016-10-07] MEDS: ACETAMINOPHEN TAB 650MG DOSE (2X325MG) PO PRN (15:44)
[2016-10-07] MEDS: QUEtiapine FUMARATE 12.5 MG HALF-TAB PO SCH (19:57)
[2016-10-07 22:00] VITALS: BP 165/94
[2016-10-08 06:00] VITALS: BP 149/85
[2016-10-08] MEDS: PARoxetine 20 MG TAB PO SCH (08:35)
[2016-10-08] MEDS: CYANOCOBALAMIN 500 MCG TAB PO SCH (08:35)
[2016-10-08] MEDS: MAGNESIUM OXIDE 400 MG TAB (MAG-OX) PO SCH (08:35)
[2016-10-08] MEDS: ALLOPURINOL 300 MG TAB PO SCH (08:35)
[2016-10-08] MEDS: risperiDONE 0.5 MG TAB PO SCH ×2 (08:35→20:00)
[2016-10-08] MEDS: METOPROLOL TART 25 MG TABLET PO SCH ×2 (08:35→20:00)
[2016-10-08] MEDS: VITAMIN D 1,000 INTERNATIONAL UNITS TABLET PO SCH (08:35)
[2016-10-08] MEDS: APIXABAN 5 MG TAB (ELIQUIS) PO SCH ×2 (08:36→20:00)
[2016-10-08] MEDS: OMEPRAZOLE 20 MG CAP PO SCH (08:36)
[2016-10-08] MEDS: ATORVASTATIN 20 MG TAB PO SCH (08:36)
[2016-10-08] MEDS: amLODIPine 10 MG TAB PO SCH (08:36)
[2016-10-08] MEDS: NYSTATIN 500,000 U/5 ML SUSP UDC SS SCH ×4 (08:37→20:00)
[2016-10-08] MEDS: ACETAMINOPHEN TAB 650MG DOSE (2X325MG) PO PRN (14:40)
[2016-10-08] MEDS: QUEtiapine FUMARATE 12.5 MG HALF-TAB PO PRN (17:15)
[2016-10-08] MEDS: LORazepam 1 MG TAB PO PRN (18:43)
[2016-10-08] MEDS: QUEtiapine FUMARATE 12.5 MG HALF-TAB PO SCH (20:05)
[2016-10-09 06:00] VITALS: BP 162/90
[2016-10-09] MEDS: ATORVASTATIN 20 MG TAB PO SCH (08:34)
[2016-10-09] MEDS: PARoxetine 20 MG TAB PO SCH (08:34)
[2016-10-09] MEDS: CYANOCOBALAMIN 500 MCG TAB PO SCH (08:34)
[2016-10-09] MEDS: MAGNESIUM OXIDE 400 MG TAB (MAG-OX) PO SCH (08:35)
[2016-10-09] MEDS: APIXABAN 5 MG TAB (ELIQUIS) PO SCH ×2 (08:35→20:09)
[2016-10-09] MEDS: risperiDONE 0.5 MG TAB PO SCH ×2 (08:35→20:09)
[2016-10-09] MEDS: OMEPRAZOLE 20 MG CAP PO SCH (08:35)
[2016-10-09] MEDS: ALLOPURINOL 300 MG TAB PO SCH (08:35)
[2016-10-09] MEDS: VITAMIN D 1,000 INTERNATIONAL UNITS TABLET PO SCH (08:35)
[2016-10-09] MEDS: LORazepam 1 MG TAB PO PRN ×2 (08:35→18:27)
[2016-10-09] MEDS: METOPROLOL TART 25 MG TABLET PO SCH ×2 (08:36→20:10)
[2016-10-09] MEDS: NYSTATIN 500,000 U/5 ML SUSP UDC SS SCH ×4 (08:36→20:09)
[2016-10-09] MEDS: amLODIPine 10 MG TAB PO SCH (08:36)
[2016-10-09] MEDS: ACETAMINOPHEN TAB 650MG DOSE (2X325MG) PO PRN (11:47)
[2016-10-09] MEDS: QUEtiapine FUMARATE 12.5 MG HALF-TAB PO PRN (11:47)
[2016-10-09] MEDS: QUEtiapine FUMARATE 12.5 MG HALF-TAB PO SCH (20:09)
[2016-10-09] MEDS: DOCUSATE SODIUM 100 MG CAP PO PRN (20:12)
[2016-10-10 06:00] VITALS: BP 154/82
[2016-10-10] MEDS: METOPROLOL TART 25 MG TABLET PO SCH ×2 (08:30→20:23)
[2016-10-10] MEDS: CYANOCOBALAMIN 500 MCG TAB PO SCH (08:30)
[2016-10-10] MEDS: APIXABAN 5 MG TAB (ELIQUIS) PO SCH ×2 (08:30→20:24)
[2016-10-10] MEDS: NYSTATIN 500,000 U/5 ML SUSP UDC SS SCH ×4 (08:30→20:24)
[2016-10-10] MEDS: ALLOPURINOL 300 MG TAB PO SCH (08:30)
[2016-10-10] MEDS: amLODIPine 10 MG TAB PO SCH (08:30)
[2016-10-10] MEDS: DOCUSATE SODIUM 100 MG CAP PO PRN (08:31)
[2016-10-10] MEDS: ATORVASTATIN 20 MG TAB PO SCH (08:31)
[2016-10-10] MEDS: PARoxetine 20 MG TAB PO SCH (08:31)
[2016-10-10] MEDS: OMEPRAZOLE 20 MG CAP PO SCH (08:31)
[2016-10-10] MEDS: LORazepam 1 MG TAB PO PRN ×2 (08:31→17:32)
[2016-10-10] MEDS: risperiDONE 0.5 MG TAB PO SCH ×2 (08:31→20:24)
[2016-10-10] MEDS: VITAMIN D 1,000 INTERNATIONAL UNITS TABLET PO SCH (08:31)
[2016-10-10] MEDS: MAGNESIUM OXIDE 400 MG TAB (MAG-OX) PO SCH (08:31)
[2016-10-10] MEDS: ACETAMINOPHEN TAB 650MG DOSE (2X325MG) PO PRN ×3 (08:31→17:53)
[2016-10-10] MEDS: QUEtiapine FUMARATE 12.5 MG HALF-TAB PO PRN (13:36)
[2016-10-10] MEDS ORDERED: QUEtiapine FUMARATE 12.5 MG HALF-TAB PO ONE (19:00)
[2016-10-10] MEDS: QUEtiapine FUMARATE 12.5 MG HALF-TAB PO SCH (20:24)
[2016-10-11 06:00] VITALS: BP 162/88
[2016-10-11] MEDS: OMEPRAZOLE 20 MG CAP PO SCH (08:50)
[2016-10-11] MEDS: PARoxetine 20 MG TAB PO SCH (08:50)
[2016-10-11] MEDS: ATORVASTATIN 20 MG TAB PO SCH (08:50)
[2016-10-11] MEDS: NYSTATIN 500,000 U/5 ML SUSP UDC SS SCH ×4 (08:50→21:25)
[2016-10-11] MEDS: VITAMIN D 1,000 INTERNATIONAL UNITS TABLET PO SCH (08:50)
[2016-10-11] MEDS: APIXABAN 5 MG TAB (ELIQUIS) PO SCH ×2 (08:50→21:24)
[2016-10-11] MEDS: CYANOCOBALAMIN 500 MCG TAB PO SCH (08:50)
[2016-10-11] MEDS: risperiDONE 0.5 MG TAB PO SCH ×2 (08:51→21:25)
[2016-10-11] MEDS: ALLOPURINOL 300 MG TAB PO SCH (08:51)
[2016-10-11] MEDS: MAGNESIUM OXIDE 400 MG TAB (MAG-OX) PO SCH (08:51)
[2016-10-11] MEDS: METOPROLOL TART 25 MG TABLET PO SCH ×2 (08:53→21:25)
[2016-10-11] MEDS: amLODIPine 10 MG TAB PO SCH (08:54)
[2016-10-11] MEDS: ACETAMINOPHEN TAB 650MG DOSE (2X325MG) PO PRN (13:02)
[2016-10-11] MEDS: LORazepam 1 MG TAB PO PRN (15:31)
[2016-10-11] MEDS: QUEtiapine FUMARATE 12.5 MG HALF-TAB PO PRN (18:32)
[2016-10-11 21:00] VITALS: BP 160/90
[2016-10-11] MEDS: QUEtiapine FUMARATE 12.5 MG HALF-TAB PO SCH (21:24)
[2016-10-12 06:00] VITALS: BP 154/80
[2016-10-12] MEDS: risperiDONE 0.5 MG TAB PO SCH ×2 (09:25→20:25)
[2016-10-12] MEDS: ALLOPURINOL 300 MG TAB PO SCH (09:25)
[2016-10-12] MEDS: OMEPRAZOLE 20 MG CAP PO SCH (09:25)
[2016-10-12] MEDS: MAGNESIUM OXIDE 400 MG TAB (MAG-OX) PO SCH (09:25)
[2016-10-12] MEDS: amLODIPine 10 MG TAB PO SCH (09:25)
[2016-10-12] MEDS: PARoxetine 20 MG TAB PO SCH (09:25)
[2016-10-12] MEDS: CYANOCOBALAMIN 500 MCG TAB PO SCH (09:25)
[2016-10-12] MEDS: ATORVASTATIN 20 MG TAB PO SCH (09:25)
[2016-10-12] MEDS: APIXABAN 5 MG TAB (ELIQUIS) PO SCH ×2 (09:26→20:25)
[2016-10-12] MEDS: NYSTATIN 500,000 U/5 ML SUSP UDC SS SCH ×4 (09:26→20:25)
[2016-10-12] MEDS: VITAMIN D 1,000 INTERNATIONAL UNITS TABLET PO SCH (09:26)
[2016-10-12] MEDS: METOPROLOL TART 25 MG TABLET PO SCH ×2 (09:26→20:25)
[2016-10-12] MEDS: ACETAMINOPHEN TAB 650MG DOSE (2X325MG) PO PRN (14:15)
--- NOTE | 2016-10-12 16:07 | IPN ---
DATE: 10/12/2016 Patient is seen and examined. No acute events overnight. No new complaints. Denies any chest pain, pressure, or discomfort. Denies any fevers or chills. Reported some chronic knee and back pain with intolerable limits. VITAL SIGNS: Temperature 97, pulse 77, respirations 19, blood pressure 154/80, pulse oximetry 92% on room air. LABORATORY DATA: WBC 8.6, hemoglobin and hematocrit 12.6/38.4, platelets 249. Chemistry: Sodium 139, potassium 3.9, chloride 103, bicarbonate 21, creatinine 1.32. Repeat labs ordered for tomorrow. Labs were done on 10/05/2016. PHYSICAL EXAMINATION: GENERAL: Patient comfortable, alert, in no acute distress. HEENT: Normocephalic, atraumatic. Moist mucous membranes. CARDIAC: Irregularly irregular, S1, S2. PULMONARY: Bilaterally clear. ABDOMEN: Obese, soft, nontender. EXTREMITIES: No clubbing, cyanosis, or edema. ASSESSMENT AND PLAN: This is a 76-year-old male patient with underlying medical history of normal pressure hydrocephalus with stents December 2013, dementia, CVA with right-sided weakness April 2015, prostate cancer 2001 status post surgery and radiation, hypertension, neuropathy, atrial fibrillation on Eliquis, arthritis, presented initially for increased agitation, confusion, and aggression. 1. Agitation and aggression. Patient has history of normal pressure hydrocephalus with ventriculoperitoneal (CRIME INVESTIGATOR SPECIAL AGENT) shunt but has not had any significant improvement. Worsening mental status felt to be secondary likely to progressive dementia. Patient currently is alternate level of care ([facility]), [facility] Patient was seen by psychiatry, started on Seroquel with some improvement. Continue supportive care. Apparently, as per previous documentation, patient had brain biopsy which demonstrates Alzheimer's dementia documented in chart. Continue Seroquel and Risperdal twice a day. 2. History of CVA. Patient on statin and Eliquis. Continue to monitor. 3. Neuropathy. Continue home medication. 4. Hypertension. Continue Lopressor and Norvasc. 5. Depression. Continue Paxil. 6. Hypomagnesemia. Continue supplementation. 7. Gout. Continue allopurinol. 8. Vitamin D deficiency. Continue supplementation. 9. Deep venous thrombosis (DVT) prophylaxis. Patient on Eliquis. 10. Atrial fibrillation. Patient on beta jesus and Eliquis. DISPOSITION: Pending placement.
[2016-10-12] MEDS: LORazepam 1 MG TAB PO PRN (17:11)
[2016-10-12] MEDS: QUEtiapine FUMARATE 12.5 MG HALF-TAB PO SCH (20:25)
[2016-10-13] MEDS: LORazepam 1 MG TAB PO PRN ×2 (01:11→16:05)
[2016-10-13 06:00] VITALS: BP 145/85
[2016-10-13 06:30] LABS: MEAN CORPUSCULAR HEMOGLOBIN 34.2 pg (27.0-33.0); MEAN CORPUSCULAR HGB CONC 33.3 g/dl (32.0-36.5); MEAN CORPUSCULAR VOLUME 102.7 fl (80.0-96.0); RED CELL DISTRIBUTION WIDTH 13.5 % (11.5-14.5); WHITE BLOOD COUNT 8.5 K/mm3 (4.0-10.0)
[2016-10-13 06:32] LABS: CALCIUM LEVEL 8.9 MG/DL (8.8-10.2); CREATININE FOR GFR 1.25 MG/DL (0.70-1.30); GLOMERULAR FILTRATION RATE 59.5 (>42); MAGNESIUM LEVEL 1.8 MG/DL (1.8-2.4); POTASSIUM SERUM 3.7 MEQ/L (3.5-5.1)
[2016-10-13] MEDS: NYSTATIN 500,000 U/5 ML SUSP UDC SS SCH ×4 (10:40→20:13)
[2016-10-13] MEDS: VITAMIN D 1,000 INTERNATIONAL UNITS TABLET PO SCH (10:40)
[2016-10-13] MEDS: APIXABAN 5 MG TAB (ELIQUIS) PO SCH ×2 (10:40→20:13)
[2016-10-13] MEDS: ALLOPURINOL 300 MG TAB PO SCH (10:41)
[2016-10-13] MEDS: MAGNESIUM OXIDE 400 MG TAB (MAG-OX) PO SCH (10:41)
[2016-10-13] MEDS: amLODIPine 10 MG TAB PO SCH (10:42)
[2016-10-13] MEDS: PARoxetine 20 MG TAB PO SCH (10:42)
[2016-10-13] MEDS: METOPROLOL TART 25 MG TABLET PO SCH ×2 (10:42→20:13)
[2016-10-13] MEDS: risperiDONE 0.5 MG TAB PO SCH ×2 (10:43→20:13)
[2016-10-13] MEDS: ATORVASTATIN 20 MG TAB PO SCH (10:43)
[2016-10-13] MEDS: OMEPRAZOLE 20 MG CAP PO SCH (10:43)
[2016-10-13] MEDS: CYANOCOBALAMIN 500 MCG TAB PO SCH (10:43)
[2016-10-13] MEDS: ACETAMINOPHEN TAB 650MG DOSE (2X325MG) PO PRN (11:00)
[2016-10-13] MEDS: QUEtiapine FUMARATE 12.5 MG HALF-TAB PO PRN (17:29)
[2016-10-13] MEDS: QUEtiapine FUMARATE 12.5 MG HALF-TAB PO SCH (20:13)
[2016-10-14 06:00] VITALS: BP 121/72
[2016-10-14] MEDS: NYSTATIN 500,000 U/5 ML SUSP UDC SS SCH ×4 (09:41→20:00)
[2016-10-14] MEDS: risperiDONE 0.5 MG TAB PO SCH ×2 (09:41→20:00)
[2016-10-14] MEDS: OMEPRAZOLE 20 MG CAP PO SCH (09:41)
[2016-10-14] MEDS: APIXABAN 5 MG TAB (ELIQUIS) PO SCH ×2 (09:42→20:00)
[2016-10-14] MEDS: METOPROLOL TART 25 MG TABLET PO SCH ×2 (09:42→20:00)
[2016-10-14] MEDS: ALLOPURINOL 300 MG TAB PO SCH (09:42)
[2016-10-14] MEDS: CYANOCOBALAMIN 500 MCG TAB PO SCH (09:42)
[2016-10-14] MEDS: PARoxetine 20 MG TAB PO SCH (09:42)
[2016-10-14] MEDS: amLODIPine 10 MG TAB PO SCH (09:43)
[2016-10-14] MEDS: MAGNESIUM OXIDE 400 MG TAB (MAG-OX) PO SCH (09:43)
[2016-10-14] MEDS: VITAMIN D 1,000 INTERNATIONAL UNITS TABLET PO SCH (09:43)
[2016-10-14] MEDS: ATORVASTATIN 20 MG TAB PO SCH (09:43)
[2016-10-14] MEDS: ACETAMINOPHEN TAB 650MG DOSE (2X325MG) PO PRN (12:58)
[2016-10-14] MEDS: LORazepam 1 MG TAB PO PRN (15:09)
[2016-10-14] MEDS: QUEtiapine FUMARATE 25 MG TAB PO SCH (16:12)
[2016-10-15 06:00] VITALS: BP 143/69
[2016-10-15] MEDS: NYSTATIN 500,000 U/5 ML SUSP UDC SS SCH ×5 (08:39→21:37)
[2016-10-15] MEDS: CYANOCOBALAMIN 500 MCG TAB PO SCH (08:39)
[2016-10-15] MEDS: VITAMIN D 1,000 INTERNATIONAL UNITS TABLET PO SCH (08:39)
[2016-10-15] MEDS: risperiDONE 0.5 MG TAB PO SCH ×2 (08:40→21:37)
[2016-10-15] MEDS: ATORVASTATIN 20 MG TAB PO SCH (08:40)
[2016-10-15] MEDS: OMEPRAZOLE 20 MG CAP PO SCH (08:40)
[2016-10-15] MEDS: MAGNESIUM OXIDE 400 MG TAB (MAG-OX) PO SCH (08:40)
[2016-10-15] MEDS: APIXABAN 5 MG TAB (ELIQUIS) PO SCH ×2 (08:40→21:37)
[2016-10-15] MEDS: PARoxetine 20 MG TAB PO SCH (08:40)
[2016-10-15] MEDS: METOPROLOL TART 25 MG TABLET PO SCH ×2 (08:40→21:37)
[2016-10-15] MEDS: ALLOPURINOL 300 MG TAB PO SCH (08:40)
[2016-10-15] MEDS: amLODIPine 10 MG TAB PO SCH (08:40)
[2016-10-15] MEDS: LORazepam 1 MG TAB PO PRN ×2 (13:35→16:58)
[2016-10-15] MEDS: ACETAMINOPHEN TAB 650MG DOSE (2X325MG) PO PRN ×2 (13:58→23:26)
[2016-10-15] MEDS: QUEtiapine FUMARATE 25 MG TAB PO SCH (15:27)
[2016-10-16 06:00] VITALS: BP 150/83
[2016-10-16 06:49] LABS: MEAN CORPUSCULAR HEMOGLOBIN 34.6 pg (27.0-33.0); RED CELL DISTRIBUTION WIDTH 13.5 % (11.5-14.5); WHITE BLOOD COUNT 9.9 K/mm3 (4.0-10.0)
[2016-10-16 07:01] LABS: CALCIUM LEVEL 8.8 MG/DL (8.8-10.2); CREATININE FOR GFR 1.38 MG/DL (0.70-1.30); GLOMERULAR FILTRATION RATE 53.1 (>42); MAGNESIUM LEVEL 1.8 MG/DL (1.8-2.4); POTASSIUM SERUM 3.5 MEQ/L (3.5-5.1)
--- NOTE | 2016-10-16 07:52 | ECGEPIP ---
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 Nonspecific ST/T wave abnormalities Different precordial lead placement from 09/28/16 Electronically Signed On 10-16-2016 7:52:12 EST by Rex Queen
[2016-10-16] MEDS ORDERED: POTASSIUM CHLORIDE 10 MEQ SR TABLET PO ONE (08:00)
[2016-10-16] MEDS: ATORVASTATIN 20 MG TAB PO SCH (08:29)
[2016-10-16] MEDS: NYSTATIN 500,000 U/5 ML SUSP UDC SS SCH ×4 (08:29→20:00)
[2016-10-16] MEDS: VITAMIN D 1,000 INTERNATIONAL UNITS TABLET PO SCH (08:29)
[2016-10-16] MEDS: MAGNESIUM OXIDE 400 MG TAB (MAG-OX) PO SCH (08:30)
[2016-10-16] MEDS: ALLOPURINOL 300 MG TAB PO SCH (08:30)
[2016-10-16] MEDS: METOPROLOL TART 25 MG TABLET PO SCH ×2 (08:30→20:00)
[2016-10-16] MEDS: CYANOCOBALAMIN 500 MCG TAB PO SCH (08:30)
[2016-10-16] MEDS: risperiDONE 0.5 MG TAB PO SCH ×2 (08:30→20:00)
[2016-10-16] MEDS: APIXABAN 5 MG TAB (ELIQUIS) PO SCH ×2 (08:31→20:00)
[2016-10-16] MEDS: PARoxetine 20 MG TAB PO SCH (08:31)
[2016-10-16] MEDS: amLODIPine 10 MG TAB PO SCH (08:31)
[2016-10-16] MEDS: OMEPRAZOLE 20 MG CAP PO SCH (08:31)
[2016-10-16] MEDS: ACETAMINOPHEN TAB 650MG DOSE (2X325MG) PO PRN ×2 (11:31→19:55)
--- NOTE | 2016-10-16 12:56 | IPN ---
DATE: 10/15/2016 Patient is seen and examined. No acute events overnight. Denies any chest pain, pressure, discomfort, shortness of breath. VITAL SIGNS: Temperature 97.3, pulse 72, respirations 16, blood pressure 143/69, pulse oximetry 95% on room air. LABORATORY DATA: WBC 8.5, hemoglobin and hematocrit 12/36, platelets 265. Chemistry: Sodium 143, potassium 3.7, chloride 106, bicarbonate 27, BUN 18, creatinine 1.25, magnesium 1.8. PHYSICAL EXAMINATION: GENERAL: Patient comfortable, in no acute distress, alert. HEENT: Normocephalic, atraumatic. Moist mucous membranes. CARDIAC: Irregularly irregular, S1, S2. PULMONARY: Bilaterally clear. ABDOMEN: Soft, nontender. EXTREMITIES: No edema. ASSESSMENT AND PLAN: This is a 76-year-old male patient with underlying medical history of normal pressure hydrocephalus with stents December 2014, dementia, CVA with right-sided weakness April 2015, prostate cancer 2000 status post surgery and radiation, hypertension, neuropathy, atrial fibrillation on Eliquis, arthritis, presented initially for increased agitation and confusion and aggression. 1. Agitation and aggression. Patient has a history of normal pressure hydrocephalus with ventriculoperitoneal (POLISHER ALUMINUM) shunt but has not had any significant improvement. Worsening mental status felt to be likely secondary to progression of dementia. Patient currently is alternate level of care, awaiting placement at longterm facility. Patient seen by psychiatry given persistent agitation. Currently on Seroquel. QTc has been appreciated on EKG to be 416. Will continue to monitor. Supportive care. Apparently, as per previous documentation, patient had a brain biopsy which demonstrated Alzheimer's dementia documented in chart. Continue Seroquel, Risperdal, dosage has been adjusted. 2. History of CVA. Statin and Eliquis. Continue to monitor. 3. Neuropathy. Continue home medications. 4. Hypertension. Continue Lopressor and Norvasc. 5. Depression. Continue Paxil. 6. Hypomagnesemia. Supplementation provided. Continue to monitor. 7. Gout. Continue allopurinol. 8. Vitamin D deficiency. Continue supplementation. 9. Atrial fibrillation. Patient on beta jesus, Eliquis. 10. Deep venous thrombosis (DVT) prophylaxis. Patient on Eliquis for atrial fibrillation. DISPOSITION: Pending placement.
[2016-10-16] MEDS: QUEtiapine FUMARATE 25 MG TAB PO SCH (15:40)
[2016-10-16] MEDS: LORazepam 1 MG TAB PO PRN (17:02)
[2016-10-16] MEDS: QUEtiapine FUMARATE 12.5 MG HALF-TAB PO PRN (19:54)
[2016-10-17 06:00] VITALS: BP 156/88
[2016-10-17] MEDS: ATORVASTATIN 20 MG TAB PO SCH (08:27)
[2016-10-17] MEDS: METOPROLOL TART 25 MG TABLET PO SCH ×2 (08:27→20:03)
[2016-10-17] MEDS: APIXABAN 5 MG TAB (ELIQUIS) PO SCH ×2 (08:27→20:02)
[2016-10-17] MEDS: amLODIPine 10 MG TAB PO SCH (08:28)
[2016-10-17] MEDS: MAGNESIUM OXIDE 400 MG TAB (MAG-OX) PO SCH (08:28)
[2016-10-17] MEDS: ALLOPURINOL 300 MG TAB PO SCH (08:29)
[2016-10-17] MEDS: CYANOCOBALAMIN 500 MCG TAB PO SCH (08:29)
[2016-10-17] MEDS: PARoxetine 20 MG TAB PO SCH (08:29)
[2016-10-17] MEDS: risperiDONE 0.5 MG TAB PO SCH ×2 (08:29→20:02)
[2016-10-17] MEDS: OMEPRAZOLE 20 MG CAP PO SCH (08:29)
[2016-10-17] MEDS: VITAMIN D 1,000 INTERNATIONAL UNITS TABLET PO SCH (08:29)
[2016-10-17] MEDS: NYSTATIN 500,000 U/5 ML SUSP UDC SS SCH ×4 (08:29→20:02)
[2016-10-17] MEDS: ACETAMINOPHEN TAB 650MG DOSE (2X325MG) PO PRN ×3 (08:37→20:03)
[2016-10-17] MEDS ORDERED: MAALOX 30 ML SUSP *UDC PO PRN (15:00)
[2016-10-17] MEDS ORDERED: SENOKOT S TAB PO PRN (15:00)
[2016-10-17] MEDS: QUEtiapine FUMARATE 25 MG TAB PO SCH (15:13)
[2016-10-17] MEDS: LORazepam 1 MG TAB PO PRN (16:22)
[2016-10-17] MEDS: QUEtiapine FUMARATE 12.5 MG HALF-TAB PO PRN (20:02)
[2016-10-18 06:00] VITALS: BP 158/84
[2016-10-18] MEDS: VITAMIN D 1,000 INTERNATIONAL UNITS TABLET PO SCH (09:11)
[2016-10-18] MEDS: PARoxetine 20 MG TAB PO SCH (09:11)
[2016-10-18] MEDS: NYSTATIN 500,000 U/5 ML SUSP UDC SS SCH (09:11)
[2016-10-18 09:12] VITALS: BP 129/69
[2016-10-18] MEDS: ATORVASTATIN 20 MG TAB PO SCH (09:12)
[2016-10-18] MEDS: CYANOCOBALAMIN 500 MCG TAB PO SCH (09:12)
[2016-10-18] MEDS: APIXABAN 5 MG TAB (ELIQUIS) PO SCH (09:12)
[2016-10-18] MEDS: risperiDONE 0.5 MG TAB PO SCH (09:12)
[2016-10-18] MEDS: amLODIPine 10 MG TAB PO SCH (09:12)
[2016-10-18] MEDS: ALLOPURINOL 300 MG TAB PO SCH (09:12)
[2016-10-18] MEDS: OMEPRAZOLE 20 MG CAP PO SCH (09:12)
[2016-10-18] MEDS: MAGNESIUM OXIDE 400 MG TAB (MAG-OX) PO SCH (09:13)
[2016-10-18] MEDS: METOPROLOL TART 25 MG TABLET PO SCH (09:13)
[2016-10-18] MEDS ORDERED: QUET1TAB7 PO (10:30)
[2016-10-18] MEDS ORDERED: RISP0.5T16 PO (10:30)
[2016-10-18] MEDS ORDERED: AMLO10TA2 PO (10:30)
[2016-10-18] MEDS ORDERED: MAG400TA PO (10:30)
[2016-10-18] MEDS: ACETAMINOPHEN TAB 650MG DOSE (2X325MG) PO PRN (11:23)
--- NOTE | 2016-10-19 15:16 | DSES ---
DATE OF ADMISSION: 09/28/2016 DATE OF DISCHARGE: 10/18/2016 PRIMARY CARE PROVIDER: Dr. Venus Amin FINAL DIAGNOSES: 1. Agitation and aggression. 2. History of normal pressure hydrocephalus with ventriculoperitoneal (BUTTON MAKER) shunt. 3. Dementia. 4. History of cerebrovascular accident (CVA). 5. Neuropathy. 6. Hypertension. 7. Depression. 8. Hypomagnesemia. 9. Gout. 10. Vitamin D deficiency. 11. Atrial fibrillation on Eliquis. HISTORY OF PRESENT ILLNESS: This is a 76-year-old male patient with underlying medical history of normal pressure hydrocephalus status post shunt in September 2013, dementia, cerebrovascular accident (CVA) with right-sided weakness July 2015, prostate cancer 2001 status post surgery and radiation, hypertension, neuropathy, atrial fibrillation on Eliquis, and arthritis who presented to the emergency room (ER), brought in by family, with increased agitation and confusion. The patient's noted that after the shunt placement for normal pressure hydrocephalus there was improvement. However, there has been slow and gradual decline of mental status since that point. Recently in the last few weeks, the patient was unable to recognize people, is lost within his own home, unable to perform activities of daily living, has become abusive and combative. The patient had adjustment of ventriculoperitoneal (BUTTON MAKER) shunt 09/06/2016 and they also noted that there has been much improvement. denies any fevers or chills. HOSPITAL COURSE: The patient was admitted to the hospital. Neurology was consulted as well as neurosurgery. CT head was appreciated. Patient was started on Seroquel and Risperdal. Initially, he was also seen by psychiatrist given persistent agitation. QTc prolongation was monitored. Patient's dose of Seroquel has been adjusted. Apparently, patient also had history of brain biopsy in the past demonstrating Alzheimer's dementia. Patient's home medication for neuropathy, hypertension, depression, hypomagnesemia, gout, and atrial fibrillation has been continued. Patient was made alternate level of care with supportive care and physical therapy. Electrolytes were followed and supplemented. Patient and family services (PFS) was consulted for placement. Patient tolerated hospitalization with no complications. He currently is transferred to [facility] for placement. VITAL SIGNS: Temperature 97.1, pulse 75, respiratory rate 19, blood pressure 129/69, pulse oximetry 94% on room air. LABORATORY DATA: WBC 9.9, hemoglobin and hematocrit 11.9/35.2, platelets 277. Chemistry: Sodium 142, potassium 3.5, chloride 105, bicarbonate 26, BUN 20, creatinine 1.38, magnesium 1.8. DISCHARGE MEDICATIONS: - Norvasc 10 mg by mouth daily - magnesium oxide 400 mg by mouth daily - Seroquel 25 mg by mouth daily at 4:00 p.m. - Risperdal 0.5 mg by mouth twice a day - acetaminophen 500 mg by mouth every eight hours as needed - allopurinol 300 mg by mouth daily - Apixaban 5 mg by mouth twice a day - Lipitor 20 mg by mouth daily - vitamin D 2000 units by mouth daily - vitamin B12 1000 mcg by mouth daily - Colace 100 mg by mouth twice a day as needed - hydroxyzine 25 mg by mouth twice a day - metoprolol 25 mg by mouth twice a day - omeprazole 20 mg by mouth daily - Paxil 20 mg by mouth daily - trazodone 50 mg by mouth at bedtime DISCHARGE INSTRUCTIONS: The patient is instructed to followup with primary care provider in seven days for further care and return to the hospital if symptoms worsen.
== END 2016-10-18 11:44 | DRG 57 ==
LOC: M ED 11:57 → M MSPAV 20:07
PROVIDERS: ADMIT Internal Medicine; ATTEND Hospitalist
DX: G30.9 Alzheimer's disease, unspecified (principal); I69.351 Hemiplegia and hemiparesis following cerebral infarction affecting right dominant side; F02.81 Dementia in other diseases classified elsewhere, unspecified severity, with behavioral disturbance; G91.2 (Idiopathic) normal pressure hydrocephalus; F32.9 Major depressive disorder, single episode, unspecified; E55.9 Vitamin D deficiency, unspecified; I10 Essential (primary) hypertension; E83.42 Hypomagnesemia; M10.9 Gout, unspecified; Z66 Do not resuscitate; G62.9 Polyneuropathy, unspecified; I48.91 Unspecified atrial fibrillation; Z79.891 Long term (current) use of opiate analgesic; Z88.0 Allergy status to penicillin; Z79.01 Long term (current) use of anticoagulants; Z85.46 Personal history of malignant neoplasm of prostate; Z98.2 Presence of cerebrospinal fluid drainage device

== ENCOUNTER → 2016-10-19 | Outpatient (REF) | payer MEDICARE ==
[~2016-10-19] MED LIST changes: +ACET50TAOT PO; +AMLO10TA2 PO; +COLA100C PO; +HYDR1CAP25 PO; +MAG400TA PO; +QUET1TAB7 PO; +RISP0.5T16 PO; +TRAZ50TA4 PO
--- NOTE | 2016-10-19 22:25 | ECGEPIP ---
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
== END ==
LOC: SKLAB6 08:00
PROVIDERS: ATTEND Internal Medicine
DX: R94.31 Abnormal electrocardiogram [ECG] [EKG] (principal)

== ENCOUNTER → 2016-10-20 | Outpatient (REF) ==
[2016-10-20 18:34] LABS: CALCIUM LEVEL 8.5 MG/DL (8.8-10.2); CREATININE FOR GFR 1.34 MG/DL (0.70-1.30); GLOMERULAR FILTRATION RATE 54.9 (>42); POTASSIUM SERUM 4.1 MEQ/L (3.5-5.1)
== END ==
LOC: SKLAB6 17:00
PROVIDERS: ATTEND Internal Medicine
DX: I50.9 Heart failure, unspecified (principal)

== ENCOUNTER → 2016-10-21 | Outpatient (REF) | payer MEDICARE ==
[2016-10-21 08:17] LABS: MEAN CORPUSCULAR HEMOGLOBIN 34.7 pg (27.0-33.0); MEAN CORPUSCULAR HGB CONC 33.3 g/dl (32.0-36.5); MEAN CORPUSCULAR VOLUME 104.1 fl (80.0-96.0); RED CELL DISTRIBUTION WIDTH 13.8 % (11.5-14.5); WHITE BLOOD COUNT 9.1 K/mm3 (4.0-10.0)
[2016-10-21 08:31] LABS: CREATININE FOR GFR 1.25 MG/DL (0.70-1.30); GLOMERULAR FILTRATION RATE 59.5 (>42); POTASSIUM SERUM 3.7 MEQ/L (3.5-5.1)
== END ==
LOC: SKLAB6 07:00
PROVIDERS: ATTEND Internal Medicine
DX: I10 Essential (primary) hypertension (principal); I48.91 Unspecified atrial fibrillation

== ENCOUNTER → 2016-10-25 | Outpatient (REF) | payer MEDICARE ==
[2016-10-25 10:16] LABS: CALCIUM LEVEL 8.5 MG/DL (8.8-10.2); CREATININE FOR GFR 1.4 MG/DL (0.70-1.30); GLOMERULAR FILTRATION RATE 52.2 (>42); POTASSIUM SERUM 3.9 MEQ/L (3.5-5.1)
== END ==
LOC: SKLAB6 07:00
PROVIDERS: ATTEND Internal Medicine
DX: I48.91 Unspecified atrial fibrillation (principal); I10 Essential (primary) hypertension

== ENCOUNTER → 2016-10-28 | Outpatient (REF) | payer MEDICARE ==
[~2016-10-28] MED LIST changes: -COLA100C PO; +COLA100C3 PO; -PARO20TA2 PO; +PARO20TA3 PO
[2016-10-28 09:21] LABS: CALCIUM LEVEL 8.4 MG/DL (8.8-10.2); CREATININE FOR GFR 1.34 MG/DL (0.70-1.30); GLOMERULAR FILTRATION RATE 54.9 (>42); POTASSIUM SERUM 3.8 MEQ/L (3.5-5.1)
== END ==
LOC: SKLAB6 07:00
PROVIDERS: ATTEND Internal Medicine
DX: I10 Essential (primary) hypertension (principal)

== ENCOUNTER → 2016-11-06 | Outpatient (REF) | payer MEDICARE ==
--- NOTE | 2016-11-06 14:07 | REP ---
REASON: Pain. PRIORS: None. The bones are demineralized. There is no evidence of an acute fracture or destructive osseous lesion. Limited evaluation of the elbow joint shows no evidence of an effusion. Signed by Jose Elaine DO 11/06/2016 04:47 P
--- NOTE | 2016-11-06 14:08 | REP ---
REASON: Pain. No trauma. No prior right shoulders for comparison. Degenerative changes are seen with a spur arising from the inferior surface of the acromion process projecting into the subacromial space with subacromial space narrowing. There is no acute fracture or dislocation. IMPRESSION: Chronic changes. Signed by Jose Elaine DO 11/06/2016 04:47 P
== END ==
LOC: M RAD 12:00 → EDSTATUS 12-27 10:48
PROVIDERS: ATTEND Internal Medicine
DX: M19.011 Primary osteoarthritis, right shoulder (principal)

== ENCOUNTER → 2017-01-06 | Outpatient (REF) | payer MEDICARE ==
[2017-01-06 09:11] LABS: MEAN CORPUSCULAR HEMOGLOBIN 34.5 pg (27.0-33.0); MEAN CORPUSCULAR HGB CONC 32.7 g/dl (32.0-36.5); MEAN CORPUSCULAR VOLUME 105.6 fl (80.0-96.0); RED CELL DISTRIBUTION WIDTH 13.8 % (11.5-14.5); WHITE BLOOD COUNT 7.9 K/mm3 (4.0-10.0)
[2017-01-06 09:40] LABS: CALCIUM LEVEL 8.8 MG/DL (8.8-10.2); CREATININE FOR GFR 1.4 MG/DL (0.70-1.30); GLOMERULAR FILTRATION RATE 52.2 (>42); POTASSIUM SERUM 3.9 MEQ/L (3.5-5.1)
== END ==
LOC: SKLAB6 07:00
PROVIDERS: ATTEND Internal Medicine
DX: I10 Essential (primary) hypertension (principal)

== ENCOUNTER → 2017-02-16 | Outpatient (REF) | payer MEDICARE | LOC: SKLAB6 21:41 | PROVIDERS: ATTEND Internal Medicine | DX: R45.1 Restlessness and agitation (principal); Z79.899 Other long term (current) drug therapy ==

== ENCOUNTER → 2017-04-07 | Outpatient (REF) | payer MEDICARE ==
[~2017-04-07] MED LIST changes: -COLA100C3 PO; +COLA100C5 PO; +KEPP1TAB PO; -KEPP500T6 PO; -METF500T PO; +METF500T13 PO; +METO25TA4 PO; -NAPR500T2 PO; +NAPR500T3 PO; -RISP0.5T16 PO; +RISP0.5T21 PO; +TRAZ50TA11 PO; -TRAZ50TA4 PO
[2017-04-07 09:59] LABS: MEAN CORPUSCULAR HEMOGLOBIN 34.2 pg (27.0-33.0); MEAN CORPUSCULAR HGB CONC 33.5 g/dl (32.0-36.5); MEAN CORPUSCULAR VOLUME 102.1 fl (80.0-96.0); RED CELL DISTRIBUTION WIDTH 14.4 % (11.5-14.5)
[2017-04-07 10:24] LABS: CALCIUM LEVEL 8.9 MG/DL (8.8-10.2); CREATININE FOR GFR 1.6 MG/DL (0.70-1.30); GLOMERULAR FILTRATION RATE 44.7 (>42)
== END ==
LOC: SKLAB6 07:00
PROVIDERS: ATTEND Internal Medicine
DX: Z51.81 Encounter for therapeutic drug level monitoring (principal); Z79.899 Other long term (current) drug therapy

== ENCOUNTER → 2017-05-12 | Outpatient (REF) | payer MEDICARE ==
[2017-05-12 09:56] LABS: CALCIUM LEVEL 9.1 MG/DL (8.8-10.2)
== END ==
LOC: SKLAB6 07:00
PROVIDERS: ATTEND Internal Medicine
DX: Z51.81 Encounter for therapeutic drug level monitoring (principal); Z79.899 Other long term (current) drug therapy

== ENCOUNTER → 2017-05-20 | Outpatient (REF) | payer MEDICARE ==
[2017-05-20 22:02] LABS: MEAN CORPUSCULAR HEMOGLOBIN 35.9 pg (27.0-33.0); MEAN CORPUSCULAR HGB CONC 34.4 g/dl (32.0-36.5); MEAN CORPUSCULAR VOLUME 104.3 fl (80.0-96.0); WHITE BLOOD COUNT 11.9 K/mm3 (4.0-10.0)
[2017-05-20 22:37] LABS: CALCIUM LEVEL 9.7 MG/DL (8.8-10.2); CREATININE FOR GFR 1.76 MG/DL (0.70-1.30); POTASSIUM SERUM 4.2 MEQ/L (3.5-5.1)
== END ==
LOC: SKLAB6 21:43
PROVIDERS: ATTEND Internal Medicine
DX: K92.0 Hematemesis (principal); J98.4 Other disorders of lung

== ENCOUNTER → 2017-05-21 | Outpatient (REF) | payer MEDICARE ==
--- NOTE | 2017-05-21 11:08 | REP ---
PORTABLE CHEST: AP portable view of the chest is performed and compared to prior study of 10/02/2016. There is poor ventilation with stable bibasilar fibroatelectatic changes. No new infiltrates are seen. Cardiomediastinal silhouette is unchanged. The patient's chin overlies the lung apices bilaterally. IMPRESSION: Stable fibroatelectatic changes in the lung bases. Signed by Danyel Solis MD 05/21/2017 07:30 P
== END ==
LOC: M LAB 05-20 20:51 → M RAD 20:55
PROVIDERS: ATTEND Internal Medicine
DX: K92.0 Hematemesis (principal); J98.4 Other disorders of lung

== ENCOUNTER → 2017-05-22 | Outpatient (REF) | payer MEDICARE | LOC: SKLAB6 08:00 | PROVIDERS: ATTEND Internal Medicine | DX: N39.0 Urinary tract infection, site not specified (principal) ==

== ENCOUNTER → 2017-05-23 | Outpatient (REF) | payer MEDICARE ==
[2017-05-23 08:34] LABS: CALCIUM LEVEL 8.5 MG/DL (8.8-10.2); CREATININE FOR GFR 1.46 MG/DL (0.70-1.30); GLOMERULAR FILTRATION RATE 49.6 (>42); POTASSIUM SERUM 3.8 MEQ/L (3.5-5.1)
[2017-05-23 08:58] LABS: MEAN CORPUSCULAR HEMOGLOBIN 35.9 pg (27.0-33.0); MEAN CORPUSCULAR HGB CONC 34.4 g/dl (32.0-36.5); MEAN CORPUSCULAR VOLUME 104.5 fl (80.0-96.0); WHITE BLOOD COUNT 7.2 K/mm3 (4.0-10.0)
== END ==
LOC: SKLAB6 08:00
PROVIDERS: ATTEND Internal Medicine
DX: K92.0 Hematemesis (principal)

== ENCOUNTER → 2017-07-07 | Outpatient (REF) | payer MEDICARE ==
[2017-07-07 08:33] LABS: MEAN CORPUSCULAR HEMOGLOBIN 33.7 pg (27.0-33.0); MEAN CORPUSCULAR HGB CONC 32.6 g/dl (32.0-36.5); MEAN CORPUSCULAR VOLUME 103.5 fl (80.0-96.0); PLATELET COUNT, AUTOMATED 264 10^3/uL (150-450); RED CELL DISTRIBUTION WIDTH 13.1 % (11.5-14.5); WHITE BLOOD COUNT 7.8 10^3/uL (4.0-10.0)
[2017-07-07 08:52] LABS: CREATININE FOR GFR 1.24 MG/DL (0.70-1.30); GLOMERULAR FILTRATION RATE 59.9 (>42); POTASSIUM SERUM 3.9 MEQ/L (3.5-5.1)
== END ==
LOC: SKLAB6 07:00
PROVIDERS: ATTEND Internal Medicine
DX: I10 Essential (primary) hypertension (principal)

== ENCOUNTER → 2017-07-25 | Outpatient (REF) | payer MEDICARE ==
[~2017-07-25] MED LIST changes: +SERO50TA PO
[2017-07-25 15:56] LABS: MEAN CORPUSCULAR HEMOGLOBIN 34.4 pg (27.0-33.0); MEAN CORPUSCULAR HGB CONC 33.8 g/dl (32.0-36.5); MEAN CORPUSCULAR VOLUME 101.5 fl (80.0-96.0); PLATELET COUNT, AUTOMATED 255 10^3/uL (150-450); RED CELL DISTRIBUTION WIDTH 12.9 % (11.5-14.5); WHITE BLOOD COUNT 7.4 10^3/uL (4.0-10.0)
[2017-07-25 16:35] LABS: ALBUMIN 3.2 GM/DL (3.2-5.2); ALBUMIN/GLOBULIN RATIO 1.1 (1.00-1.93); BILIRUBIN,TOTAL 0.4 MG/DL (0.2-1.0); CALCIUM LEVEL 8.6 MG/DL (8.8-10.2); CREATININE FOR GFR 1.27 MG/DL (0.70-1.30); GLOMERULAR FILTRATION RATE 58.2 (>42); POTASSIUM SERUM 3.6 MEQ/L (3.5-5.1); TOTAL PROTEIN 6.1 GM/DL (6.4-8.2)
== END ==
LOC: SKLAB6 15:10
PROVIDERS: ATTEND Internal Medicine
DX: I11.0 Hypertensive heart disease with heart failure (principal); I48.91 Unspecified atrial fibrillation; I63.9 Cerebral infarction, unspecified; Z79.899 Other long term (current) drug therapy

== ENCOUNTER 2017-07-26 10:55 | Emergency (ER) | payer MEDICARE, MEDICAID ==
[~2017-07-26 10:55] MED LIST changes: -SERO50TA PO
[2017-07-26 11:05] VITALS: BP 143/76
[2017-07-26] MEDS ORDERED: SERO50TA PO (11:15)
[2017-07-26] MEDS ORDERED: MORPHINE 2 MG/ML 1ML SYRINGE IM ONE (11:45)
[2017-07-26] MEDS ORDERED: PERCOCET 5MG/325MG TAB PO ONE (13:30)
--- NOTE | 2017-07-26 18:54 | CR ---
DATE OF CONSULTATION: 07/26/2017 REASON FOR CONSULTATION: Right hip fracture. HISTORY OF PRESENT ILLNESS: Edi is a 77-year-old gentleman with significant dementia and other medical problems who [facility] a [facility]. He was acting in pain and was unable to bear weight. X-rays at the emergency room (ER) revealed a displaced femoral neck fracture. I was consulted for possible surgical management but also to discuss possible hospice. The history was obtained from the who is the healthcare proxy as well as the daughter. This patient has what they deemed moderate dementia up until about August where he had a significant deterioration in his mental status. Most recently, he has been not able to follow any conversations, does not answer questions, and his daily routine involved bed to chair transfers. He no longer got up with a walker due to balance issues and just slamming the walker on the ground and combative at times. has significant concerns about surgery and what his quality of life would be. PAST MEDICAL HISTORY: Notable for: 1. Hypertension. 2. Peripheral artery disease. 3. 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 4. Atrial fibrillation not on blood thinners due to fall risk. For the full patient history, please see the emergency room (ER) documentation which I reviewed. PHYSICAL EXAMINATION: Reveals an elderly gentleman who occasionally groans but does not respond to any questions. He does not make eye contact. He does not wiggle toes in response to painful stimuli. He sits in the stretcher with his hip flexed to 70 degrees and adducted. CARDIAC: He has a palpable posterior tibial (PT) pulse with an irregular rate. PULMONARY: Nonlabored breathing. Skin on the right hip was intact. MUSCULOSKELETAL: Physical examination was severely limited by the patient's neurologic status. He was fighting any attempt for me to manipulate his leg. Unable to assess sensation or strength. The patient did not give any response when asked if he was in pain. RADIOLOGY: X-rays: AP, lateral of the right hip were obtained and available for my review. There is a significantly displace subcapital femoral neck fracture on the right side. ASSESSMENT AND PLAN: Edi Sweeney is a 77-year-old gentleman with multiple medical problems and advanced dementia, and a non-ambulator with a displaced femoral neck fracture. I spent greater than one hour with the patient's who is the healthcare proxy as well as speaking with the daughter and one of the sons and 75% of that time was spent directly coordinating patient care with the in the presence of the patient. A lot of this time was spent discussing the risks and benefits of surgery versus nonoperative treatment. Surgical options was a hemiarthroplasty. No role for closed reduction and pinning or open reduction internal fixation (ORIF). We discussed the limitations following surgery, concerns for hip dislocation as well as the cognitive effects of going through anesthesia. We discussed the role for hospice and unfortunately, the patient's is very familiar with that as a close family member was recently placed on hospice. After multiple conversations, the and daughter agreed to hospice care and comfort measures. My personal opinion is that that was the best decision. However, I did offer to perform surgery if the entire family was on board. The patient was planned [facility] and hospice will be set up.
== END 2017-07-26 14:58 | disposition home or self-care (01) ==
LOC: M ED 10:55
DX: S72.011A Unspecified intracapsular fracture of right femur, initial encounter for closed fracture (principal); W01.198A Fall on same level from slipping, tripping and stumbling with subsequent striking against other object, initial encounter; Y92.129 Unspecified place in nursing home as the place of occurrence of the external cause; Y93.01 Activity, walking, marching and hiking; Y99.9 Unspecified external cause status

== ENCOUNTER → 2017-07-26 | Outpatient (REF) | payer MEDICARE ==
--- NOTE | 2017-07-26 08:04 | REP ---
RIGHT HIP: Three views. HISTORY: Injury in a fall. Comparison radiographs are from September 28, 2016. FINDINGS: AP and cross-table lateral views of the right hip demonstrate a subcapital fracture with override and varus deformity. Vascular calcification is noted. A ventriculoperitoneal shunt catheter is visible in the right lower quadrant and there are prostatectomy clips visible in the pelvis. IMPRESSION: Subcapital fracture right hip with override and varus. Signed by Fabricio Panchal MD 07/26/2017 04:14 P
== END ==
LOC: SKLAB6 07:15
PROVIDERS: ATTEND Internal Medicine
DX: M25.551 Pain in right hip (principal); S72.011A Unspecified intracapsular fracture of right femur, initial encounter for closed fracture; W01.198A Fall on same level from slipping, tripping and stumbling with subsequent striking against other object, initial encounter; Y92.129 Unspecified place in nursing home as the place of occurrence of the external cause; Y93.89 Activity, other specified; Z98.890 Other specified postprocedural states

== ENCOUNTER → 2017-08-06 | Outpatient (REF) | payer MEDICARE, MEDICAID ==
[~2017-08-06] MED LIST changes: +SERO50TA PO
[2017-08-06 14:45] LABS: MEAN CORPUSCULAR HEMOGLOBIN 33.3 pg (27.0-33.0); MEAN CORPUSCULAR HGB CONC 32.1 g/dl (32.0-36.5); MEAN CORPUSCULAR VOLUME 103.7 fl (80.0-96.0); PLATELET COUNT, AUTOMATED 460 10^3/uL (150-450); RED CELL DISTRIBUTION WIDTH 12.7 % (11.5-14.5); WHITE BLOOD COUNT 10.6 10^3/uL (4.0-10.0)
[2017-08-06 14:59] LABS: ALBUMIN 2.6 GM/DL (3.2-5.2); ALBUMIN/GLOBULIN RATIO 0.72 (1.00-1.93); BILIRUBIN,TOTAL 0.5 MG/DL (0.2-1.0); CALCIUM LEVEL 8.5 MG/DL (8.8-10.2); CREATININE FOR GFR 1.32 MG/DL (0.70-1.30); GLOMERULAR FILTRATION RATE 55.7 (>42); POTASSIUM SERUM 4.2 MEQ/L (3.5-5.1); TOTAL PROTEIN 6.2 GM/DL (6.4-8.2)
== END ==
LOC: SKLAB6 12:59
PROVIDERS: ATTEND Internal Medicine
DX: R31.9 Hematuria, unspecified (principal)